=== PATIENT | female | born 1960 | race Caucasian/White ===

== ENCOUNTER 2017-08-25 17:55 | Emergency (ER) | payer BC ==
[2017-08-25] MEDS ORDERED: Sodium Chloride 0.9% 1,000 ML IV ONE (18:28)
[2017-08-25] MEDS ORDERED: Ondansetron 4 MG Tab.DIS PO ONE (18:36)
[2017-08-25] MEDS ORDERED: Sodium Chloride 0.9% 10 ML Syringe FLUSH ONE (19:40)
[2017-08-25] MEDS ORDERED: Ondansetron 4 MG Tab.DIS PO PRN (19:42)
--- NOTE | 2017-08-27 09:07 | EDM.PDOC ---
ED HPI GENERAL MEDICAL PROBLEM - General Chief Complaint: Gastrointestinal Problem Stated Complaint: ABDOMINAL PAIN Time Seen by Provider: 08/25/17 18:09 Source of Information: Reports: Patient History Limitations: Reports: No Limitations - History of Present Illness INITIAL COMMENTS - FREE TEXT/NARRATIVE: PATIENT IS A 57-YEAR-OLD FEMALE WHO PRESENTS THE EMERGENCY DEPARTMENT THIS EVENING WITH A COMPLAINT OF VOMITING, DIARRHEA, AND ABDOMINAL DISCOMFORT WITH INTERMITTENT CRAMPING. PATIENT STATES THAT SHE HAD A HAMBURGER 2 DAYS AGO AT A [employer] AND SINCE THEN HAS HAD INTERMITTENT ABDOMINAL DISCOMFORT. SHE DOES HAVE CHRONIC DIARRHEA, BUT DID HAVE A COUPLE EPISODES OF VOMITING SINCE FRIDAY. PATIENT IS CURRENTLY ON CHEMOTHERAPY FOR COLON CANCER AND IS SCHEDULED FOR CHEMOTHERAPY AND CAT SCAN AT [facility] IN 2 DAYS. PATIENT STATES THAT ANOTHER INDIVIDUAL WITH HER ALSO ATE AT THE SAME ESTABLISHMENT AND HAS SIMILAR SYMPTOMS. PATIENT DENIES FEVER, CHEST PAIN, SHORTNESS OF BREATH, BLOOD IN VOMITUS OR DIARRHEA, DYSURIA, OR SYMPTOMS THAT ARE DIFFERENT THAN HER TYPICAL ABDOMINAL COMPLAINTS FOR HER CONDITION. Onset: Gradual Onset Date: 08/23/17 Duration: Day(s):, Intermittent Location: Reports: Abdomen Quality: Reports: Other (CRAMPING) Severity: Mild Improves with: Reports: None Worsens with: Reports: None Associated Symptoms: Reports: Nausea/Vomiting. Denies: Fever/Chills - Related Data Allergies Allergy/AdvReac Type Severity Reaction Status Date / Time No Known Allergies Allergy Verified 08/26/17 13:23 Home Meds: Home Meds Dexamethasone 4 mg PO ASDIRECTED PRN 06/25/17 [History] Iron,Carbonyl/Ascorbic Acid [Vitron-C Tablet] 1 tab PO BID 06/25/17 [History] Levothyroxine Sodium [Synthroid] 150 mcg PO DAILY 06/25/17 [History] Lidocaine/Prilocaine [EMLA Crm] 1 applic TOP ASDIRECTED PRN 06/25/17 [History] Prochlorperazine Maleate 10 mg PO QID PRN 06/25/17 [History] Ranitidine HCl [Zantac] 150 mg PO BID PRN 06/25/17 [History] Past Medical History HEENT History: Reports: Impaired Vision Gastrointestinal History: Reports: Chronic Diarrhea Other Gastrointestinal History: with chemo Genitourinary History: Reports: 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: Endocrine/Metabolic History: Reports: Hyperthyroidism Hematologic History: Reports: Anemia, Blood Transfusion(s), Iron Deficiency Other Hematologic History: microcytic anemia Immunologic History: Reports: Immunosuppression Oncologic (Cancer) History: Reports: Colon - Infectious Disease History Infectious Disease History: Reports: Mumps - Past Surgical History HEENT Surgical History: Reports: None GI Surgical History: Reports: Colonoscopy Female Surgical History: Reports: Section, Tubal Ligation Endocrine Surgical History: Reports: Thyroid Biopsy, Thyroidectomy Social & Family History - Caffeine Use Caffeine Use: Reports: None ED ROS GENERAL - Review of Systems Review Of Systems: ROS reveals no pertinent complaints other than HPI. Constitutional: Reports: No Symptoms HEENT: Reports: No Symptoms Respiratory: Reports: No Symptoms Cardiovascular: Reports: No Symptoms Endocrine: Reports: No Symptoms GI/Abdominal: Reports: Abdominal Pain, Diarrhea, Nausea, Vomiting : Reports: No Symptoms Musculoskeletal: Reports: No Symptoms Skin: Reports: No Symptoms Neurological: Reports: No Symptoms Psychiatric: Reports: No Symptoms Hematologic/Lymphatic: Reports: No Symptoms Immunologic: Reports: No Symptoms ED EXAM, GI/ABD - Physical Exam Exam: See Below Exam Limited By: No Limitations General Appearance: Alert, WD/WN, No Apparent Distress Nose: Normal Inspection, No Blood Throat/Mouth: Normal Inspection, Normal Oropharynx, No Airway Compromise Head: Atraumatic, Normocephalic Neck: Normal Inspection, Supple Respiratory/Chest: No Respiratory Distress, Lungs Clear, Normal Breath Sounds, No Accessory Muscle Use, Chest Non-Tender Cardiovascular: Regular Rate, Rhythm, No Rub GI/Abdominal Exam: Soft, No Distention, No Abnormal Bruit, No Mass, Tender ( MILDLY TENDER DIFFUSELY), Abnormal Bowel Sounds (HYPERACTIVE) Back Exam: Normal Inspection. No: CVA Tenderness (L), CVA Tenderness (R) Extremities: Normal Inspection, No Pedal Edema Neurological: Alert, Oriented, Normal Cognition Psychiatric: Normal Affect, Normal Mood Skin Exam: Warm, Dry, Intact, Normal Color, No Rash Course - Orders/Labs/Meds Orders: Medication Orders Ondansetron HCl (Zofran Odt) 4 mg PO Q6H PRN PRN Reason: Nausea/Vomiting Last Admin: 08/25/17 19:42 Dose: 16 mg Meds: Medications Generic Name Dose Route Start Last Admin Trade Name Freq PRN Reason Stop Dose Admin Ondansetron HCl 4 mg 08/25/17 19:42 08/25/17 19:42 Zofran Odt PO 16 mg Q6H PRN Administration Nausea/Vomiting Discontinued Medications Generic Name Dose Route Start Last Admin Trade Name Kate PRN Reason Stop Dose Admin Sodium Chloride 1,000 mls @ 999 mls/hr 08/25/17 18:28 08/25/17 18:30 Normal Saline IV 08/25/17 19:28 999 mls/hr .BOLUS ONE Administration Ondansetron HCl 4 mg 08/25/17 18:36 08/25/17 18:45 Zofran Odt PO 08/25/17 18:37 4 mg ONETIME ONE Administration Sodium Chloride 20 ml 08/25/17 19:40 08/26/17 16:39 Saline Flush FLUSH 08/25/17 19:41 20 ml ONETIME ONE Administration - Re-Assessments/Exams Free Text/Narrative Re-Assessment/Exam: 08/27/17 09:26 PATIENT AFEBRILE, NONTOXIC APPEARING, VITAL SIGNS STABLE, LAB VALUES WITHIN NORMAL LIMITS. PATIENT GIVEN 4 MG ZOFRAN AND 1 L NORMAL SALINE IV. NAUSEA AND DISCOMFORT RESOLVED. PATIENT WILL FOLLOW-UP SCHEDULED IN [place] ON FRIDAY AND RETURN TO EMERGENCY DEPARTMENT SOONER IF SYMPTOMS CONTINUE OR WORSEN. Departure - Departure Time of Disposition: 19:45 Disposition: Home, Self-Care 01 Condition: Good Clinical Impression: Diarrhea, Abdominal pain Nausea & vomiting Qualifiers: Vomiting type: unspecified Vomiting Intractability: non-intractable Qualified Code(s): R11.2 - Nausea with vomiting, unspecified - Discharge Information Instructions: Dehydration, Adult, [id number], Nausea and Vomiting, Adult, [id number], Diarrhea, Adult, [id number], Abdominal Pain, Adult, [id number] Referrals: PCP,Unobtain [Primary Care Provider] - Forms: ED Department Discharge Additional Instructions: FOLLOW-UP SCHEDULED ON FRIDAY IN [place] FOR CHEMOTHERAPY. RETURN TO EMERGENCY DEPARTMENT SOONER IF SYMPTOMS CONTINUE OR WORSEN. - Assessment/Plan Assessment:: ABDOMINAL PAIN, DIARRHEA Plan: FOLLOW-UP SCHEDULED IN [place] ON FRIDAY. RETURN TO EMERGENCY SOONER IF SYMPTOMS CONTINUE OR WORSEN.
[2017-08-27 11:23] LABS: CHLORIDE,CL 107 mmol/L (98-115); SODIUM,NA 139 mmol/L (136-145)
== END 2017-08-25 19:45 | disposition home or self-care (01) ==
LOC: KA.ED 17:55
DX: R11.2 Nausea with vomiting, unspecified (principal); R19.7 Diarrhea, unspecified; R10.9 Unspecified abdominal pain; E05.90 Thyrotoxicosis, unspecified without thyrotoxic crisis or storm; Z79.899 Other long term (current) drug therapy
CPT/HCPCS: 36415; 80053; 81001; 82270; 85025; 87045; 87046; 87324; 89055; 96360; 99284; A9270-GY; J7030

== ENCOUNTER 2017-10-12 21:46 | Emergency (ER) | payer BC ==
[2017-10-12] MEDS ORDERED: Ondansetron 4 MG/2 ML SDV IVPUSH ONE ×2 (22:38→22:58)
[2017-10-12] MEDS ORDERED: Sodium Chloride 0.9% 1,000 ML IV ONE (22:38)
--- NOTE | 2017-10-12 22:43 | EDM.PDOC ---
ED HPI GENERAL MEDICAL PROBLEM - General Chief Complaint: Gastrointestinal Problem Stated Complaint: nausea vomitting Time Seen by Provider: 10/12/17 22:15 Source of Information: Reports: Patient, Family () History Limitations: Reports: No Limitations - History of Present Illness INITIAL COMMENTS - FREE TEXT/NARRATIVE: Patient presents with vomiting and diarrhea. The vomiting has been pretty heavy since this morning when it started; the diarrhea has been 5x/day for the last 3 days. She had chemo 4 days ago and gets it [id number]. 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 She denies any known fever, cough, dysuria. She started a new kind of chemo in the last couple weeks that has been causing more N/V than her previous one. Except for the diarrhea she has felt quite good most of the weekend and went to activities with her granddaughter, etc. Today, however has been tough with all the vomiting. - Related Data Allergies Allergy/AdvReac Type Severity Reaction Status Date / Time No Known Allergies Allergy Verified 10/12/17 23:17 Home Meds: Home Meds Dexamethasone 4 mg PO ASDIRECTED PRN 06/25/17 [History] Iron,Carbonyl/Ascorbic Acid [Vitron-C Tablet] 1 tab PO BID 06/25/17 [History] Levothyroxine Sodium [Synthroid] 150 mcg PO DAILY 06/25/17 [History] Lidocaine/Prilocaine [EMLA Crm] 1 applic TOP ASDIRECTED PRN 06/25/17 [History] Prochlorperazine Maleate 10 mg PO QID PRN 06/25/17 [History] Ranitidine HCl [Zantac] 150 mg PO BID PRN 06/25/17 [History] Past Medical History HEENT History: Reports: Impaired Vision Gastrointestinal History: Reports: Chronic Diarrhea Other Gastrointestinal History: with chemo Genitourinary History: Reports: None 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: Endocrine/Metabolic History: Reports: Hyperthyroidism Hematologic History: Reports: Anemia, Blood Transfusion(s), Iron Deficiency Other Hematologic History: microcytic anemia Immunologic History: Reports: Immunosuppression Oncologic (Cancer) History: Reports: Colon - Infectious Disease History Infectious Disease History: Reports: Mumps - Past Surgical History HEENT Surgical History: Reports: None GI Surgical History: Reports: Colonoscopy Female Surgical History: Reports: Section, Tubal Ligation Endocrine Surgical History: Reports: Thyroid Biopsy, Thyroidectomy Social & Family History - Caffeine Use Caffeine Use: Reports: None ED ROS GENERAL - Review of Systems Review Of Systems: See Below Constitutional: Reports: Malaise, Weakness. Denies: Fever, Chills HEENT: Reports: No Symptoms. Denies: Throat Pain, Throat Swelling, Vision Change Respiratory: Reports: No Symptoms. Denies: Shortness of Breath, Cough Cardiovascular: Reports: No Symptoms. Denies: Chest Pain, Lightheadedness, Syncope Endocrine: Reports: No Symptoms GI/Abdominal: Reports: Diarrhea, Nausea, Vomiting. Denies: Abdominal Pain, Bloody Stool : Reports: No Symptoms. Denies: Dysuria, Flank Pain Musculoskeletal: Reports: No Symptoms Skin: Reports: No Symptoms Neurological: Reports: No Symptoms. Denies: Confusion, Seizure, Syncope Psychiatric: Reports: No Symptoms. Denies: Agitation, Anxiety, Confusion Hematologic/Lymphatic: Denies: Anemia ED EXAM, GI/ABD - Physical Exam Exam: See Below Exam Limited By: No Limitations General Appearance: Alert, WD/WN, No Apparent Distress Eyes: Bilateral: Normal Appearance, EOMI Ears: Normal External Exam, Hearing Grossly Normal Nose: Normal Inspection, No Blood Throat/Mouth: Normal Inspection, Normal Lips, Normal Voice, No Airway Compromise Head: Atraumatic, Normocephalic Neck: Normal Inspection, Full Range of Motion Respiratory/Chest: No Respiratory Distress, Lungs Clear, Normal Breath Sounds, No Accessory Muscle Use Cardiovascular: No Murmur, Tachycardia (mild). No: Irregularly Irregular GI/Abdominal Exam: Soft, Non-Tender, No Organomegaly, No Distention Back Exam: Normal Inspection. No: CVA Tenderness (L), CVA Tenderness (R) Neurological: Alert, Oriented, Normal Cognition, No Motor/Sensory Deficits Psychiatric: Normal Affect, Normal Mood Skin Exam: Warm, Dry, Intact, No Rash, Pallor Course - Vital Signs Last Recorded V/S: Last Vital Signs Temp 99.3 F 10/12/17 23:27 Pulse 92 10/12/17 23:45 Resp 26 H 10/12/17 23:45 BP 102/49 L 10/12/17 23:45 Pulse Ox 97 10/12/17 23:45 - Orders/Labs/Meds Orders: Active Orders 24 hr Category Date Time Status Chest 2V [CR] Stat Exams 10/13/17 00:00 Ordered CULTURE BLOOD [BC] Stat Lab 10/13/17 00:02 Ordered CULTURE BLOOD [BC] Stat Lab 10/13/17 00:02 Ordered CULTURE URINE [RM] Stat Lab 10/13/17 01:21 Ordered UA W/MICROSCOPIC [URIN] Stat Lab 10/13/17 00:00 Ordered Blood Culture x2 Reflex Set [OM.PC] Stat Oth 10/13/17 00:00 Ordered Labs: Laboratory Tests 10/12/17 10/12/17 10/12/17 Range/Units 22:55 22:55 22:55 WBC 1.0 L* (5.0-10.0) 10^3/uL RBC 5.28 (3.80-5.50) 10^6/uL Hgb 14.3 D (12.0-16.0) g/dL Hct 43.8 (37.0-47.0) % MCV 82.9 D (82.0-92.0) fL MCH 27.0 (27.0-31.0) pg MCHC 32.6 (32.0-36.0) g/dL RDW 18.5 H (11.5-14.5) % Plt Count 489 H D (150-300) 10^3/uL MPV 6.6 L (7.4-10.4) fL Neut % (Auto) 18.5 L (50.0-70.0) % Lymph % (Auto) 71.2 H (20.0-40.0) % Morgan % (Auto) 6.6 (2.0-8.0) % Eos % (Auto) 0.3 L (1.0-3.0) % Baso % (Auto) 3.4 H (0.0-1.0) % Neut # (Auto) 0.2 L (2.5-7.0) 10^3/uL Lymph # (Auto) 0.7 L (1.0-4.0) 10^3/uL Morgan # (Auto) 0.1 (0.1-0.8) 10^3/uL Eos # (Auto) 0.0 L (0.1-0.3) 10^3/uL Baso # (Auto) 0.0 (0.0-0.1) 10^3/uL Sodium 132 L (136-145) mmol/L Potassium 4.2 (3.3-5.3) mmol/L Chloride 98 (98-115) mmol/L Carbon Dioxide 18.5 L (21.0-32.0) mmol/L BUN 22 (6-25) mg/dL Creatinine 0.99 (0.51-1.17) mg/dL Est Cr Clr Drug Dosing 59.40 mL/min Estimated GFR (MDRD) 58 mL/min Glucose 197 H (70-110) mg/dL Lactic Acid 4.1 H (0.4-2.0) mmol/L Calcium 9.2 (8.7-10.3) mg/dL Specimen Type Urine Color (YELLOW) Urine Appearance (CLEAR) Urine pH (5.0-9.0) Ur Specific [place] (1.005-1.030) Urine Protein (NEGATIVE) mg/dL Urine Glucose (UA) (NEGATIVE) mg/dL Urine Ketones (NEGATIVE) mg/dL Urine Occult Blood (NEGATIVE) Urine Nitrite (NEGATIVE) Urine Bilirubin (NEGATIVE) Urine Urobilinogen (0.2-1.0) E.U./dL Ur Leukocyte Esterase (NEGATIVE) Urine RBC /HPF Urine WBC /HPF Ur Epithelial Cells /LPF Urine Bacteria (NONE TO FEW) /HPF Hyaline Casts (NEGATIVE) /LPF Granular Casts (NEGATIVE) /LPF Urine Mucus (NEGATIVE) /LPF 10/13/17 10/13/17 Range/Units 00:55 01:00 WBC (5.0-10.0) 10^3/uL RBC (3.80-5.50) 10^6/uL Hgb (12.0-16.0) g/dL Hct (37.0-47.0) % MCV (82.0-92.0) fL MCH (27.0-31.0) pg MCHC (32.0-36.0) g/dL RDW (11.5-14.5) % Plt Count (150-300) 10^3/uL MPV (7.4-10.4) fL Neut % (Auto) (50.0-70.0) % Lymph % (Auto) (20.0-40.0) % Morgan % (Auto) (2.0-8.0) % Eos % (Auto) (1.0-3.0) % Baso % (Auto) (0.0-1.0) % Neut # (Auto) (2.5-7.0) 10^3/uL Lymph # (Auto) (1.0-4.0) 10^3/uL Morgan # (Auto) (0.1-0.8) 10^3/uL Eos # (Auto) (0.1-0.3) 10^3/uL Baso # (Auto) (0.0-0.1) 10^3/uL Sodium (136-145) mmol/L Potassium (3.3-5.3) mmol/L Chloride (98-115) mmol/L Carbon Dioxide (21.0-32.0) mmol/L BUN (6-25) mg/dL Creatinine (0.51-1.17) mg/dL Est Cr Clr Drug Dosing mL/min Estimated GFR (MDRD) mL/min Glucose (70-110) mg/dL Lactic Acid 3.6 H (0.4-2.0) mmol/L Calcium (8.7-10.3) mg/dL Specimen Type Urincc Urine Color Yellow (YELLOW) Urine Appearance Slightly cloudy H (CLEAR) Urine pH 5.0 (5.0-9.0) Ur Specific [place] 1.025 (1.005-1.030) Urine Protein 30 H (NEGATIVE) mg/dL Urine Glucose (UA) Negative (NEGATIVE) mg/dL Urine Ketones Negative (NEGATIVE) mg/dL Urine Occult Blood Negative (NEGATIVE) Urine Nitrite Negative (NEGATIVE) Urine Bilirubin Small H (NEGATIVE) Urine Urobilinogen 0.2 (0.2-1.0) E.U./dL Ur Leukocyte Esterase Negative (NEGATIVE) Urine RBC 0-5 /HPF Urine WBC 5-10 H /HPF Ur Epithelial Cells Few /LPF Urine Bacteria Moderate H (NONE TO FEW) /HPF Hyaline Casts Many H (NEGATIVE) /LPF Granular Casts Moderate H (NEGATIVE) /LPF Urine Mucus Moderate H (NEGATIVE) /LPF Meds: Medications Discontinued Medications Generic Name Dose Route Start Last Admin Trade Name Freq PRN Reason Stop Dose Admin Sodium Chloride 1,000 mls @ 999 mls/hr 10/12/17 22:38 10/12/17 22:54 Normal Saline IV 10/12/17 23:38 999 mls/hr .BOLUS ONE Administration Piperacillin Sod/Tazobactam 50 mls @ 100 mls/hr 10/13/17 00:00 10/13/17 01:10 Sod 3.375 gm/ Sodium Chloride IV 10/13/17 00:29 Not Given ONETIME ONE Sodium Chloride 1,000 mls @ 999 mls/hr 10/13/17 00:00 10/13/17 00:05 Normal Saline IV 10/13/17 01:00 999 mls/hr .BOLUS ONE Administration Vancomycin HCl 1 gm/ Sodium 250 mls @ 167 mls/hr 10/13/17 00:00 Chloride IV 10/13/17 01:29 ONETIME ONE Piperacillin/Tazobactam/ 50 mls @ 100 mls/hr 10/13/17 01:07 10/13/17 01:09 Dextrose 3.375 gm/ Premix IV 10/13/17 01:36 100 mls/hr ONETIME ONE Administration Sodium Chloride Confirm 10/13/17 01:34 Normal Saline Administered 10/13/17 01:35 Dose 1,000 mls @ as directed .ROUTE .STK-MED ONE Ondansetron HCl 4 mg 10/12/17 22:38 10/12/17 22:54 Zofran IVPUSH 10/12/17 22:39 4 mg ONETIME ONE Administration Ondansetron HCl 4 mg 10/12/17 22:58 10/12/17 23:14 Zofran IVPUSH 10/12/17 22:59 4 mg ONETIME ONE Administration Ondansetron HCl Confirm 10/12/17 22:59 10/12/17 23:14 Zofran Administered 10/12/17 23:00 Not Given Dose 4 mg .ROUTE .STK-MED ONE - Re-Assessments/Exams Free Text/Narrative Re-Assessment/Exam: 10/13/17 00:03 WBC 1.0, ANC 0.2, lactic acid 4.1, tachypnea, hypotension tachycardia. The vitals improved after fluids and patient is feeling a little better. I discussed this with Dr. Lewis who advised me to discuss with hospitalist in [place] to determine transfer or admit here. I discussed case with Dr. Armas ( film color tester) because their protocol requires that for anyone with Lactate above 4.0. He requested Zosyn, Vanco, UA, CXR, second liter of fluids and repeat Lactate to see how she responds before knowing if she would need ICU, since she has responded positively to the first liter of fluids. Discussed this with patient and she is okay with this plan. 10/13/17 01:04 Second liter of fluids and Zosyn are running. Patient would like to be in [place] where her oncologist is. I called and discussed case with Dr. Roper ( hospitalist) who is willing to accept except he wants a repeat Lactic acid first , in case she would need to go to ICU instead. He is okay with me initiating transfer while we wait for the lactate since pt will be going to [place] either way and they will decide which doctor sees her after the lactate result. 10/13/17 01:41 Second lactic acid is 3.6; this is called to [place] and patient is leaving now in stable condition. Zosyn is in and Vanco will be started en route. Departure - Departure Time of Disposition: 01:02 Disposition: DC/Tfer to Acute Hospital 02 Condition: Good Clinical Impression: Lactic acid acidosis, Tachycardia, Tachypnea Neutropenia Qualifiers: Neutropenia type: unspecified Qualified Code(s): D70.9 - Neutropenia, unspecified Hypotension Qualifiers: Hypotension type: unspecified hypotension type Qualified Code(s): I95.9 - Hypotension, unspecified UTI (urinary tract infection) Qualifiers: Urinary tract infection type: site unspecified Hematuria presence: without hematuria Qualified Code(s): N39.0 - Urinary tract infection, site not specified - Discharge Information Referrals: Priti Lewis MD [Primary Care Provider] - Forms: ED Department Discharge - My Orders Last 24 Hours: My Active Orders 10/13/17 00:00 Chest 2V [CR] Stat UA W/MICROSCOPIC [URIN] Stat Blood Culture x2 Reflex Set [OM.PC] Stat 10/13/17 00:02 CULTURE BLOOD [BC] Stat CULTURE BLOOD [BC] Stat 10/13/17 01:21 CULTURE URINE [RM] Stat - Assessment/Plan Last 24 Hours: My Active Orders 10/13/17 00:00 Chest 2V [CR] Stat UA W/MICROSCOPIC [URIN] Stat Blood Culture x2 Reflex Set [OM.PC] Stat 10/13/17 00:02 CULTURE BLOOD [BC] Stat CULTURE BLOOD [BC] Stat 10/13/17 01:21 CULTURE URINE [RM] Stat
[2017-10-12] MEDS ORDERED: Ondansetron 4 MG/2 ML SDV ONE (22:59)
[2017-10-13] MEDS ORDERED: Sodium Chloride 0.9% 1,000 ML IV ONE
[2017-10-13] MEDS ORDERED: Piperacillin/Tazobactam 3.375 GM in Sodium Chloride 0.9% 50 ML IV ONE ×2
[2017-10-13] MEDS ORDERED: Piperacillin/Tazobactam/Dext 3.375 GM in Premix Bag 1 BAG IV ONE (01:07)
[2017-10-13] MEDS ORDERED: Sodium Chloride 0.9% 1,000 ML ONE (01:34)
== END 2017-10-13 01:35 ==
LOC: SUPCPDRO 21:46 → KA.ED 21:46
DX: R00.0 Tachycardia, unspecified (principal); R06.82 Tachypnea, not elsewhere classified; E87.2 Acidosis; D70.9 Neutropenia, unspecified; I95.9 Hypotension, unspecified; N39.0 Urinary tract infection, site not specified; E05.90 Thyrotoxicosis, unspecified without thyrotoxic crisis or storm; Z79.899 Other long term (current) drug therapy
CPT/HCPCS: 36415; 80048; 81001; 83605; 85025; 87040; 87086; 96361; 96365; 96375; 99285; J2405; J2543; J7030

== ENCOUNTER 2017-11-14 09:24 | Inpatient (IN) | payer BC ==
[2017-11-14] MEDS ORDERED: Ondansetron 4 MG Tab.DIS PO PRN ×2 (18:27→19:07)
[2017-11-14] MEDS: Acetaminophen 325 MG Tab PO PRN (19:04)
[2017-11-14] MEDS ORDERED: Melatonin 3 MG Tab PO PRN (19:09)
--- NOTE | 2017-11-14 19:11 | PCM.HP ---
H&P History of Present Illness - General Date of Service: 11/14/17 Admit Problem/Dx: Admission Diagnosis/Problem Admission Diagnosis/Problem Debility - History of Present Illness Initial Comments - Free Text/Narative: Mrs. Walls reports generalized fatigue and overall lack of energy. No new concerns since 3 week stay at [facility]. Received 2units PRBCs this morning prior to transfer. Hopes to gain strength during her stay. Had been working with PT and OT during acute stay. Abdominal and back pain are stable and improved with Tylenol. Tolerating other medications as long as pills are cut smaller. Sat at bedside discussion overall plan of care for approximately 40 minutes. - Related Data Allergies/Adverse Reactions: Allergies Allergy/AdvReac Type Severity Reaction Status Date / Time No Known Allergies Allergy Verified 11/14/17 17:08 Home Medications: Home Meds Dexamethasone 4 mg PO ASDIRECTED PRN 06/25/17 [History] Iron,Carbonyl/Ascorbic Acid [Vitron-C Tablet] 1 tab PO BID 06/25/17 [History] Levothyroxine Sodium [Synthroid] 150 mcg PO DAILY 06/25/17 [History] Lidocaine/Prilocaine [EMLA Crm] 1 applic TOP ASDIRECTED PRN 06/25/17 [History] Prochlorperazine Maleate 10 mg PO QID PRN 06/25/17 [History] Ranitidine HCl [Zantac] 150 mg PO BID PRN 06/25/17 [History] Past Medical History HEENT History: Reports: Impaired Vision Gastrointestinal History: Reports: Chronic Diarrhea Other Gastrointestinal History: with chemo Genitourinary History: Reports: None 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: Endocrine/Metabolic History: Reports: Hyperthyroidism Hematologic History: Reports: Anemia, Blood Transfusion(s), Iron Deficiency Other Hematologic History: microcytic anemia Immunologic History: Reports: Immunosuppression Oncologic (Cancer) History: Reports: Colon - Infectious Disease History Infectious Disease History: Reports: Mumps - Past Surgical History HEENT Surgical History: Reports: None GI Surgical History: Reports: Colonoscopy Female Surgical History: Reports: Section, Tubal Ligation Endocrine Surgical History: Reports: Thyroid Biopsy, Thyroidectomy Social & Family History - Family History Cardiac: Reports: Congenital Septal Defect, High Cholesterol, Hypertension Oncologic: Reports: Brain, Breast, Ovarian, Pancreatic, Prostate - Caffeine Use Caffeine Use: Reports: None H&P Review of Systems - Review of Systems: Review Of Systems: ROS reveals no pertinent complaints other than HPI. General: Reports: Malaise, Weakness, Fatigue, Weight Loss. Denies: Fever, Chills Pulmonary: Reports: Cough. Denies: Shortness of Breath, Wheezing Cardiovascular: Reports: Dyspnea on Exertion. Denies: Chest Pain Gastrointestinal: Reports: Abdominal Pain. Denies: No Symptoms Genitourinary: Reports: No Symptoms Musculoskeletal: Reports: Back Pain, Joint Pain. Denies: Joint Swelling Skin: Reports: Pallor, Dryness Psychiatric: Reports: Depression, Hallucinations (Visual) (during recent hospitalization while in ICU) Neurological: Reports: Confusion, Tremors, Weakness, Gait Disturbance. Denies: Headache, Numbness, Paresthesia Hematologic/Lymphatic: Reports: Anemia Immunologic: Reports: Environmental Allergy. Denies: Anaphylaxis, Food Allergy Exam - Exam Exam: See Below - Vital Signs Vital Signs: Last Vital Signs Temp 37.0 C 11/14/17 16:55 Pulse 110 H 11/14/17 16:55 Resp 24 H 11/14/17 16:55 BP 131/82 11/14/17 16:55 Pulse Ox 93 L 11/14/17 16:55 Weight: 72.892 kg - Exam General: Alert, Oriented, Other (cachectic and tired appearing) HEENT: Conjunctiva Clear, Hearing Intact, Mucosa Moist & [place] Neck: Supple Lungs: Normal Respiratory Effort Cardiovascular: Regular Rate, Regular Rhythm GI/Abdominal Exam: Soft, Other (Drain sites with dressings in place) Extremities: Normal Range of Motion, Non-Tender, No Pedal Edema Skin: Warm, Dry Neurological: No: Focal Deficit Psychiatric: Alert, Depressed Problem List Initiated/Reviewed/Updated: Yes Orders Last 24hrs: Active Orders 24 hr Category Date Time Status Patient Status [ADT] Routine ADT 11/14/17 19:08 Ordered May Shower [RC] ASDIRECTED Care 11/14/17 19:08 Ordered Up With Assistance [RC] ASDIRECTED Care 11/14/17 19:08 Ordered Up to Chair [RC] TID Care 11/14/17 19:08 Ordered Vital Signs [RC] DAILY Care 11/14/17 19:08 Ordered Regular Diet [DIET] Diet 11/14/17 Breakfast Ordered MISCELLANEOUS CULT [MREF] Routine Lab 11/14/17 17:45 Received Acetaminophen [Tylenol] Med 11/14/17 18:15 Active 650 mg PO Q4H PRN Ascorbic Acid [Vitamin C] Med 11/15/17 09:00 Ordered 500 mg PO DAILY Ferrous Sulfate [Slow Release Iron] Med 11/15/17 09:00 Ordered 160 mg PO DAILY Levothyroxine Med 11/15/17 07:30 Active 150 mcg PO ACBREAKFAST Melatonin Med 11/14/17 19:09 Ordered 3 mg PO BEDTIME PRN Mirtazapine [Remeron] Med 11/14/17 21:00 Active 30 mg PO BEDTIME Ondansetron [Zofran ODT] Med 11/14/17 19:07 Ordered 8 mg PO Q8H PRN levoFLOXacin [Levaquin] Med 11/15/17 09:00 Ordered 750 mg PO DAILY Resuscitation Status Routine Resus Stat 11/14/17 19:08 Ordered Medication Orders Acetaminophen (Tylenol) 650 mg PO Q4H PRN PRN Reason: Pain (mild 1-3) Last Admin: 11/14/17 19:04 Dose: 650 mg Ascorbic Acid (Vitamin C) 500 mg PO DAILY [place] Ferrous Sulfate (Slow Release Iron) 160 mg PO DAILY [place] Levofloxacin (Levaquin) 750 mg PO DAILY [place] Levothyroxine Sodium (Levothyroxine) 150 mcg PO ACBREAKFAST [place] Mirtazapine (Remeron) 30 mg PO BEDTIME [place] Ondansetron HCl (Zofran Odt) 8 mg PO Q8H PRN PRN Reason: Nausea/Vomiting Assessment/Plan Comment:: HPI summary: Mrs. Walls is a 57yoF with a history notable for stage IV colon adenocarcinoma with recent hospitalization from 10/23/17 to 11/14/17 at [facility] for abdominal pain secondary to bowel obstruction who during the hospitalization developed peritonitis with septic shock and recurrent malignant ascites for which abdominal drain is now in place. She required several courses of antibiotics, TPN and PRBCs at times during her stay. She became significantly deconditioned and was discharged to for swing bed rehabilitation. Hospitalization problems: # Deconditioning: Secondary to metastatic cancer and recent illness. PT referral placed. 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 Ruffin, [facility]; next appt . Plan is to resume irinotecan and panitumumab at 20% dose reduction when stable. Referral has also been placed to go to [facility] for second opinion in the near future. Monitor peritoneal drain and prior peritoneal drain sites closely. # Hx peritonitis secondary to bowel perforation: Etiology E. coli and Strep anginosus. S/p 10 day course of cefepime and metronidazole. Now on prophylactic levofloxacin, which will be continued. 11/13/17 CT abdomen/pelvis with air in the ascites, which was felt to be secondary to the peritoneal drain and not bowel perforation. # Pain: Main sites include abdomen and back. Continue Tylenol prn. History suggestive of trigger point, for which may benefit from trigger point injections if persistent. # Anemia: Received 2 units PRBCs on 11/14/17. Recheck CBC tomorrow. Continue iron supplementation with vitamin C. # Protein calorie malnutrition: Received TPN for 2 weeks. Encourage healthy diet. # Depression and insomnia: Related to overall and recent medical difficulties. Mirtazepine recently started, which will be continued. Also ordered melatonin prn. 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 Continue levothyroxine at current dose. Hospitalization details: # FEN: No IVF. 11/14 electrolytes normal; recheck tomorrow. Regular diet. # PPX: Ambulation for DVT ppx. # Code status: FULL code. Patient states that she is having a goals of care discussion with her family this weekend and will notify me of any changes in this status. # Emergency contact: , [place]. # Disposition: Admit to swing bed status for physical rehabilitation.
[2017-11-14] MEDS ORDERED: Mirtazapine 15 MG Tab PO SCH (21:00)
[2017-11-15] MEDS ORDERED: Levothyroxine 100 MCG Tab PO SCH (07:30)
[2017-11-15] MEDS: Levofloxacin 500 MG Tab PO SCH (10:27)
[2017-11-15] MEDS: Ferrous Sulfate 160 MG TAB.ER PO SCH (10:29)
[2017-11-15] MEDS: Ascorbic Acid 500 MG Tab PO SCH (10:31)
[2017-11-15] MEDS: Levothyroxine 75 MCG Tab PO SCH (10:32)
[2017-11-15 11:30] LABS: ANION GAP 19.3 mmol/L (5-15); CHLORIDE,CL 107 mmol/L (98-115); SODIUM,NA 148 mmol/L (136-145)
[2017-11-15] MEDS: Mirtazapine 15 MG Tab PO SCH (21:19)
[2017-11-16] MEDS: Levofloxacin 500 MG Tab PO SCH (09:29)
[2017-11-16] MEDS ORDERED: LORazepam 0.5 MG Tab PO PRN (10:22)
[2017-11-16] MEDS ORDERED: Levofloxacin/Dextrose 5%-Water 250 MG in Premix Bag 1 BAG IV SCH (10:45)
[2017-11-16] MEDS ORDERED: Levofloxacin/Dextrose 5%-Water 500 MG in Premix Bag 1 BAG IV SCH (10:45)
[2017-11-16] MEDS: Iron Polysaccharides Complex 150 MG Cap PO SCH (12:11)
[2017-11-16] MEDS: Ascorbic Acid 500 MG Tab PO SCH (12:11)
[2017-11-16] MEDS: Levothyroxine 75 MCG Tab PO SCH (12:11)
[2017-11-16] MEDS: Ferrous Sulfate 160 MG TAB.ER PO SCH (15:30)
[2017-11-16] MEDS ORDERED: Acetaminophen 650 MG Supp RECTAL PRN (19:46)
[2017-11-16] MEDS ORDERED: Sodium Chloride 0.9% 1,000 ML IV SCH (20:45)
--- NOTE | 2017-11-16 20:54 | PCM.SN ---
- Free Text/Narrative Note: Pt has been restless with jerky movements and picking, unable to settle. Head shaking side to side. Was given ativan 0.5 mg q 4 hrs prn today. Last dose at 4 pm. After supper pt has become less lucid. She can open eyes to command but unable to speak. When questioned re: pain, she makes sound of no with head shaking. When palpating distended abdomen and asking if she has pain she does seem to indicate pain. Mouth is dry Abdomen distended. Drain put out 750 ml on days and 140 on pm shift. Urine out put 450 on days, none on PM shift. Temp has been 99.6-100 temporally, Heart rate 119-110, BP 117/55-102/70, REsp 24 , O2Sats 92%. Rectal temp checked and found to be 100.7. Change in mental status in pt with recent peritonitis/sepsis/colon cancer on chemo. Will check CBC, BMP, BLOOD CULTURES, LACTIC ACID Begin NS IV 125 ml/hr. stop ativan.
[2017-11-16] MEDS: Mirtazapine 15 MG Tab PO SCH (21:17)
[2017-11-16 22:11] LABS: CHLORIDE,CL 107 mmol/L (98-115); SODIUM,NA 144 mmol/L (136-145)
[2017-11-16] MEDS ORDERED: NS + KCl 20mEq/L 1,000 ML IV SCH (22:45)
[2017-11-17] MEDS: Sodium Chloride 0.9% 20 ML SDV FLUSH SCH ×4 (01:00→22:03)
[2017-11-17] MEDS: Levothyroxine 75 MCG Tab PO SCH ×2 (08:26→12:17)
[2017-11-17 12:39] LABS: ANION GAP 12.6 mmol/L (5-15); CHLORIDE,CL 110 mmol/L (98-115); SODIUM,NA 146 mmol/L (136-145)
[2017-11-17] MEDS: Acetaminophen 325 MG Tab PO PRN (13:22)
[2017-11-17] MEDS: Iron Polysaccharides Complex 150 MG Cap PO SCH (15:14)
[2017-11-17] MEDS: Levofloxacin/Dextrose 5%-Water 50 ML IV SCH (15:15)
[2017-11-17] MEDS: Ascorbic Acid 500 MG Tab PO SCH (15:15)
[2017-11-17] MEDS: Levofloxacin/Dextrose 5%-Water 100 ML IV SCH (16:30)
[2017-11-17] MEDS ORDERED: Potassium Bicarbonate/Potassium Chloride 25 MEQ Tab.Eff PO ONE ×2 (18:20→21:00)
[2017-11-17] MEDS ORDERED: Potassium Chloride 20 MEQ in Premix Bag 1 BAG IV ONE (22:25)
[2017-11-18 07:55] LABS: ANION GAP 13.3 mmol/L (5-15); CHLORIDE,CL 110 mmol/L (98-115); SODIUM,NA 146 mmol/L (136-145)
[2017-11-18] MEDS: Levothyroxine 75 MCG Tab PO SCH (08:23)
[2017-11-18] MEDS: Sodium Chloride 0.9% 20 ML SDV FLUSH SCH ×3 (08:25→22:09)
[2017-11-18] MEDS ORDERED: Potassium Bicarbonate/Potassium Chloride 25 MEQ Tab.Eff PO SCH (09:00)
--- NOTE | 2017-11-18 10:34 | PCM.PN ---
- General Info Date of Service: 11/17/17 Subjective Update: Immediately upon my arrival I was asked to see this patient due to significant change in mentation status as nurses could not arouse patient. Unable to perform review of systems due to patient's state of obtundedness - Patient Data Vitals - Most Recent: Last Vital Signs Temp 99.0 F 11/18/17 07:26 Pulse 92 11/18/17 07:26 Resp 16 11/18/17 07:26 BP 97/68 11/18/17 07:26 Pulse Ox 95 11/18/17 09:00 Weight - Most Recent: 160 lb 11.2 oz I&O - Last 24 Hours: Intake & Output 11/17/17 11/18/17 11/18/17 22:59 06:59 14:59 Intake Total 280 225 Output Total 300 Balance 280 -75 Lab Results Last 24 Hours: Laboratory Results - last 24 hr 11/17/17 11/17/17 11/18/17 Range/Units 11:08 11:55 07:25 PT 11.2 (8.9-11.4) SEC INR 1.1 (0.9-1.1) Sodium 146 H 146 H (136-145) mmol/L Potassium 3.1 L 3.7 (3.3-5.3) mmol/L Chloride 110 110 (98-115) mmol/L Carbon Dioxide 26.5 26.4 (21.0-32.0) mmol/L Anion Gap 12.6 13.3 (5-15) mmol/L BUN 12 10 (6-25) mg/dL Creatinine 0.61 0.61 (0.51-1.17) mg/dL Est Cr Clr Drug Dosing 96.40 96.40 mL/min Estimated GFR (MDRD) > 60 > 60 mL/min Glucose 77 113 mg/dL Calcium 6.9 L 6.8 L (8.7-10.3) mg/dL [place] Results Last 24 Hours: Microbiology 11/16/17 21:45 Aerobic Blood Culture - Preliminary Blood - Venous - Lab Draw NO GROWTH AFTER 1 DAY Anaerobic Blood Culture - Preliminary NO GROWTH AFTER 1 DAY 11/16/17 21:15 Aerobic Blood Culture - Preliminary Blood - Venous NO GROWTH AFTER 1 DAY Anaerobic Blood Culture - Preliminary NO GROWTH AFTER 1 DAY Med Orders - Current: Current Medications Acetaminophen (Tylenol) 650 mg PO Q4H PRN PRN Reason: Pain (mild 1-3) Last Admin: 11/17/17 13:22 Dose: 650 mg Acetaminophen (Tylenol) 650 mg RECTAL Q4H PRN PRN Reason: Fever Last Admin: 11/16/17 20:23 Dose: 650 mg Ascorbic Acid (Vitamin C) 500 mg PO DAILY [facility] Last Admin: 11/17/17 15:15 Dose: Not Given Levofloxacin/Dextrose (Levaquin In D5w 250 Mg/50 Ml) 50 mls @ 50 mls/hr IV DAILY@1330 [facility] Last Admin: 11/17/17 15:15 Dose: 50 mls/hr Levofloxacin/Dextrose (Levaquin In D5w 500 Mg/100 Ml) 100 mls @ 100 mls/hr IV DAILY@1430 [facility] Last Admin: 11/17/17 16:30 Dose: 100 mls/hr Levothyroxine Sodium (Levothyroxine) 150 mcg PO ACBREAKFAST [facility] Last Admin: 11/18/17 08:23 Dose: 150 mcg Mirtazapine (Remeron) 15 mg PO BEDTIME [facility] Last Admin: 11/16/17 21:17 Dose: Not Given Ondansetron HCl (Zofran Odt) 8 mg PO Q8H PRN PRN Reason: Nausea/Vomiting Ondansetron HCl (Zofran) 8 mg IVPUSH Q6H PRN PRN Reason: Nausea/Vomiting Polysaccharide Iron Complex (Ferrex 150) 150 mg PO DAILY [facility] Last Admin: 11/17/17 15:14 Dose: Not Given Ramelteon (Rozerem) 8 mg PO BEDTIME [facility] Last Admin: 11/17/17 22:41 Dose: Not Given Sodium Chloride (Normal Saline) 20 ml FLUSH TID [facility] Last Admin: 11/18/17 08:25 Dose: 20 ml Discontinued Medications Ferrous Sulfate (Slow Release Iron) 160 mg PO DAILY [facility] Last Admin: 11/16/17 15:30 Dose: Not Given Levofloxacin/Dextrose 250 mg/ (Premix) 50 mls @ 50 mls/hr IV ONETIME [facility] Last Admin: 11/16/17 12:24 Dose: 50 mls/hr Levofloxacin/Dextrose 500 mg/ (Premix) 100 mls @ 100 mls/hr IV ONETIME [facility] Last Admin: 11/16/17 15:29 Dose: 100 mls/hr Sodium Chloride (Normal Saline) 1,000 mls @ 125 mls/hr IV ASDIRECTED [facility] Last Admin: 11/16/17 21:29 Dose: 125 mls/hr Potassium Chloride/Sodium Chloride (Normal Saline With 20 Meq Kcl) 1,000 mls @ 125 mls/hr IV ASDIRECTED [facility] Last Admin: 11/16/17 23:06 Dose: 125 mls/hr Sodium Chloride (Normal Saline) Confirm Administered Dose 150 mls @ as directed .ROUTE .STK-MED ONE Stop: 11/17/17 14:46 Last Admin: 11/17/17 15:15 Dose: 50 mls/hr Potassium Chloride 20 meq/ (Premix) 100 mls @ 50 mls/hr IV ONETIME ONE Stop: 11/18/17 00:24 Last Admin: 11/17/17 22:39 Dose: 50 mls/hr Levofloxacin (Levaquin) 750 mg PO DAILY [facility] Last Admin: 11/15/17 10:27 Dose: 500 mg Levothyroxine Sodium (Synthroid) 100 mcg PO ACBREAKFAST [facility] Lorazepam (Ativan) 0.5 mg PO Q6H PRN PRN Reason: Agitation Stop: 11/17/17 10:22 Last Admin: 11/16/17 16:09 Dose: 0.5 mg Melatonin (Melatonin) 3 mg PO BEDTIME PRN PRN Reason: Insomnia Mirtazapine (Remeron) 30 mg PO BEDTIME [facility] Last Admin: 11/14/17 21:26 Dose: 30 mg Ondansetron HCl (Zofran Odt) 4 mg PO Q8H PRN PRN Reason: Nausea/Vomiting Potassium Bicarb/Potassium Chloride (Potassium Chloride, Effervescent) 25 meq PO ONETIME ONE Stop: 11/17/17 18:21 Last Admin: 11/17/17 18:30 Dose: 25 meq Potassium Bicarb/Potassium Chloride (Potassium Chloride, Effervescent) 25 meq PO ONETIME ONE Stop: 11/17/17 21:01 Last Admin: 11/17/17 23:16 Dose: Not Given Potassium Bicarb/Potassium Chloride (Potassium Chloride, Effervescent) 25 meq PO DAILY [facility] - Exam Quality Assessment: No: Supplemental Oxygen General: Other (Opened eyes to verbal command) Neck: Supple Lungs: Clear to Auscultation, Normal Respiratory Effort Cardiovascular: Regular Rate, Regular Rhythm GI/Abdominal Exam: Distended, Rigid. No: No Distention Extremities: No Pedal Edema, Pallor. No: Joint Swelling, Increased Warmth, Mottled Peripheral Pulses: 2+: Radial (L), Radial (R) Skin: Warm, Dry, Intact Neurological: Normal Tone, Sensation Intact. No: Normal Speech Psy/Mental Status: Withdrawal Symptoms - Problem List Review Problem List Initiated/Reviewed/Updated: Yes - My Orders Last 24 Hours: My Active Orders 11/17/17 11:45 BODY FLUID, CELL COUNT Routine 11/17/17 21:00 Ramelteon [Rozerem] 8 mg PO BEDTIME - Plan Plan:: HPI summary: Mrs. Walls is a 57yoF with a history notable for stage IV colon adenocarcinoma with recent hospitalization from 10/23/17 to 11/14/17 at [facility] for abdominal pain secondary to bowel obstruction who during the hospitalization developed peritonitis with septic shock and recurrent malignant ascites for which abdominal drain is now in place. She required several courses of antibiotics, TPN and PRBCs at times during her stay. She became significantly deconditioned and was discharged to [facility] for swing bed rehabilitation. Hospitalization problems: Altered mental status, profound however no focal neurological deficit on neuro exam, difficult to arouse however was able to respond appropriately motor commands however weak and flaccid, normal DTRs, not oriented to date time place or name, confusion, appears excessively sedated Hypokalemia, will need correcting # Deconditioning: Secondary to metastatic cancer and recent illness. 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 Ruffin, [facility]; next appt . Plan is to resume irinotecan and panitumumab at 20% dose reduction when stable. Referral has also been placed to go to [facility] for second opinion in the near future. Monitor peritoneal drain and prior peritoneal drain sites closely. # Hx peritonitis secondary to bowel perforation: Etiology E. coli and Strep anginosus. S/p 10 day course of cefepime and metronidazole. Now on prophylactic levofloxacin, which will be continued. 11/13/17 CT abdomen/pelvis with air in the ascites, which was felt to be secondary to the peritoneal drain and not bowel perforation. # Pain: Main sites include abdomen and back. Continue Tylenol prn. History suggestive of trigger point, for which may benefit from trigger point injections if persistent. # Anemia: Received 2 units PRBCs on 11/14/17. ongoing monitoring, Continue iron supplementation with vitamin C. # Protein calorie malnutrition: Received TPN for 2 weeks. Encourage healthy diet. # Depression and insomnia: Related to overall and recent medical difficulties. Mirtazepine recently started, will dc this as could be causing her AMS changes. 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 Continue levothyroxine at current dose. Hospitalization details: # FEN: No IVF. 11/14 electrolytes normal; continue monitoring Regular diet. # PPX: Ambulation for DVT ppx. # Code status: FULL code. Patient states that she is having a goals of care discussion with her family this weekend and will notify me of any changes in this status. # Emergency contact: , [place]. # Disposition: Admit to swing bed status for physical rehabilitation. Medical decision making. Correct potassium, assess for spontaneous bacterial peritonitis with peritoneal fluid sent for cell count although doubtful infectious etiology causing her AMS, suspect oversedation likely due to mirtazapine and acute hospital delirium, DC mirtazapine, add [place]. Will need to discuss with family regarding CODE STATUS.
[2017-11-18] MEDS: Ascorbic Acid 500 MG Tab PO SCH (12:30)
[2017-11-18] MEDS: Iron Polysaccharides Complex 150 MG Cap PO SCH (12:31)
[2017-11-18] MEDS: Levofloxacin/Dextrose 5%-Water 50 ML IV SCH (14:30)
[2017-11-18] MEDS: Acetaminophen 325 MG Tab PO PRN (14:34)
[2017-11-18] MEDS: Levofloxacin/Dextrose 5%-Water 100 ML IV SCH (16:15)
[2017-11-19] MEDS: Acetaminophen 325 MG Tab PO PRN ×2 (04:32→18:46)
[2017-11-19] MEDS: Levothyroxine 75 MCG Tab PO SCH (07:31)
[2017-11-19] MEDS: Iron Polysaccharides Complex 150 MG Cap PO SCH (09:27)
[2017-11-19] MEDS: Ascorbic Acid 500 MG Tab PO SCH ×2 (09:27→15:14)
[2017-11-19] MEDS: Sodium Chloride 0.9% 20 ML SDV FLUSH SCH ×3 (09:30→20:38)
[2017-11-19] MEDS: Levofloxacin/Dextrose 5%-Water 50 ML IV SCH (15:13)
[2017-11-19] MEDS: Levofloxacin/Dextrose 5%-Water 100 ML IV SCH (16:11)
[2017-11-19] MEDS: Ondansetron 4 MG/2 ML SDV IVPUSH PRN (17:10)
[2017-11-19] MEDS: Mirtazapine 15 MG Tab PO SCH (20:42)
[2017-11-20] MEDS: Ondansetron 4 MG/2 ML SDV IVPUSH PRN ×2 (04:17→09:02)
[2017-11-20] MEDS: Acetaminophen 325 MG Tab PO PRN ×2 (04:31→10:53)
[2017-11-20] MEDS: Levothyroxine 75 MCG Tab PO SCH (08:47)
[2017-11-20] MEDS: Iron Polysaccharides Complex 150 MG Cap PO SCH (08:47)
[2017-11-20] MEDS: Ascorbic Acid 500 MG Tab PO SCH (08:47)
[2017-11-20] MEDS: Sodium Chloride 0.9% 20 ML SDV FLUSH SCH ×3 (08:49→20:59)
[2017-11-20] MEDS ORDERED: Levofloxacin/Dextrose 5%-Water 50 ML IV SCH (09:15)
[2017-11-20] MEDS ORDERED: Levofloxacin/Dextrose 5%-Water 100 ML IV SCH (10:00)
[2017-11-20] MEDS: Mirtazapine 15 MG Tab PO SCH (21:00)
[2017-11-21] MEDS: Ondansetron 4 MG/2 ML SDV IVPUSH PRN ×2 (00:08→18:41)
[2017-11-21] MEDS: Sodium Chloride 0.9% 20 ML SDV FLUSH SCH ×4 (00:15→21:36)
[2017-11-21] MEDS: Acetaminophen 325 MG Tab PO PRN ×3 (00:46→19:30)
[2017-11-21] MEDS: Levothyroxine 75 MCG Tab PO SCH (10:49)
[2017-11-21] MEDS: Iron Polysaccharides Complex 150 MG Cap PO SCH (10:51)
[2017-11-21] MEDS: Ascorbic Acid 500 MG Tab PO SCH (10:51)
[2017-11-21] MEDS: Levofloxacin/Dextrose 5%-Water 50 ML IV SCH (16:01)
[2017-11-21] MEDS: Sodium Chloride 0.9% 100 ML IV SCH (16:01)
[2017-11-21] MEDS: Levofloxacin/Dextrose 5%-Water 100 ML IV SCH (17:08)
[2017-11-22] MEDS: Ondansetron 4 MG/2 ML SDV IVPUSH PRN ×3 (03:47→19:53)
[2017-11-22] MEDS: Sodium Chloride 0.9% 20 ML SDV FLUSH SCH ×4 (07:33→20:00)
[2017-11-22 08:05] LABS: ANION GAP 16.4 mmol/L (5-15); CHLORIDE,CL 107 mmol/L (98-115); SODIUM,NA 145 mmol/L (136-145)
[2017-11-22] MEDS: Levothyroxine 75 MCG Tab PO SCH (08:16)
[2017-11-22] MEDS: Iron Polysaccharides Complex 150 MG Cap PO SCH (08:17)
[2017-11-22] MEDS: Ascorbic Acid 500 MG Tab PO SCH (08:17)
[2017-11-22] MEDS: Levofloxacin/Dextrose 5%-Water 50 ML IV SCH (13:07)
[2017-11-22] MEDS: Levofloxacin/Dextrose 5%-Water 100 ML IV SCH (14:38)
[2017-11-22] MEDS: Sodium Chloride 0.9% 100 ML IV SCH (14:40)
[2017-11-22] MEDS: Acetaminophen 325 MG Tab PO PRN ×2 (14:53→22:12)
[2017-11-23] MEDS: Acetaminophen 325 MG Tab PO PRN ×2 (08:32→21:28)
[2017-11-23] MEDS: Levothyroxine 75 MCG Tab PO SCH (08:33)
[2017-11-23] MEDS: Iron Polysaccharides Complex 150 MG Cap PO SCH (11:14)
[2017-11-23] MEDS: Ascorbic Acid 500 MG Tab PO SCH (11:16)
[2017-11-23] MEDS: Sodium Chloride 0.9% 20 ML SDV FLUSH SCH ×3 (18:41→21:26)
[2017-11-23] MEDS: Sodium Chloride 0.9% 100 ML IV SCH (18:42)
[2017-11-23] MEDS: Levofloxacin/Dextrose 5%-Water 50 ML IV SCH (18:42)
[2017-11-23] MEDS: Levofloxacin/Dextrose 5%-Water 100 ML IV SCH (20:05)
[2017-11-24] MEDS: Levothyroxine 75 MCG Tab PO SCH (07:34)
[2017-11-24] MEDS: Ascorbic Acid 500 MG Tab PO SCH (08:48)
[2017-11-24] MEDS: Sodium Chloride 0.9% 20 ML SDV FLUSH SCH ×3 (08:49→21:05)
[2017-11-24] MEDS: Iron Polysaccharides Complex 150 MG Cap PO SCH (09:44)
[2017-11-24] MEDS: Acetaminophen 325 MG Tab PO PRN ×2 (09:44→22:25)
[2017-11-24] MEDS: Levofloxacin/Dextrose 5%-Water 50 ML IV SCH (13:06)
[2017-11-24] MEDS: Sodium Chloride 0.9% 100 ML IV SCH (13:09)
[2017-11-24] MEDS: Levofloxacin/Dextrose 5%-Water 100 ML IV SCH (14:19)
[2017-11-25] MEDS: Levothyroxine 75 MCG Tab PO SCH (09:25)
[2017-11-25] MEDS: Iron Polysaccharides Complex 150 MG Cap PO SCH (09:25)
[2017-11-25] MEDS: Ascorbic Acid 500 MG Tab PO SCH (09:25)
[2017-11-25] MEDS: Sodium Chloride 0.9% 20 ML SDV FLUSH SCH (09:25)
[2017-11-25] MEDS: Acetaminophen 325 MG Tab PO PRN (09:26)
[2017-11-25] MEDS: Ondansetron 4 MG Tab.DIS PO PRN ×3 (09:40→18:03)
[2017-11-25] MEDS: Acetaminophen 650 MG Tab.ER PO SCH ×3 (13:55→23:45)
[2017-11-26] MEDS: Acetaminophen 650 MG Tab.ER PO SCH ×5 (04:03→22:06)
[2017-11-26] MEDS: Levothyroxine 75 MCG Tab PO SCH (07:39)
[2017-11-26] MEDS: Iron Polysaccharides Complex 150 MG Cap PO SCH (09:39)
[2017-11-26] MEDS: Ascorbic Acid 500 MG Tab PO SCH (09:39)
[2017-11-26] MEDS: PROMETHAZINE TOP PRN (12:51)
[2017-11-26] MEDS ORDERED: Promethazine Topical Gel 0.5 ML Syringe TOP ONE (12:51)
[2017-11-26] MEDS: Metoclopramide 10 MG Tab PO PRN (12:52)
[2017-11-27] MEDS: Acetaminophen 650 MG Tab.ER PO SCH ×4 (05:47→22:05)
[2017-11-27] MEDS: Levothyroxine 75 MCG Tab PO SCH ×3 (05:47→06:30)
[2017-11-27] MEDS: Iron Polysaccharides Complex 150 MG Cap PO SCH (09:18)
[2017-11-27] MEDS: Ascorbic Acid 500 MG Tab PO SCH (09:19)
[2017-11-27] MEDS: Metoclopramide 10 MG Tab PO PRN ×2 (10:11→16:59)
[2017-11-27] MEDS: PROMETHAZINE TOP PRN (23:42)
[2017-11-28] MEDS: Metoclopramide 10 MG Tab PO PRN ×3 (03:09→16:04)
[2017-11-28] MEDS: Acetaminophen 650 MG Tab.ER PO SCH ×2 (04:32→10:02)
[2017-11-28] MEDS: Levothyroxine 75 MCG Tab PO SCH (06:46)
[2017-11-28] MEDS: PROMETHAZINE TOP PRN (09:13)
[2017-11-28] MEDS: Iron Polysaccharides Complex 150 MG Cap PO SCH (10:00)
[2017-11-28] MEDS: Ascorbic Acid 500 MG Tab PO SCH (10:00)
[2017-11-28] MEDS: Lidocaine 5% 700 MG Patch TOP SCH (12:29)
[2017-11-28] MEDS ORDERED: ClonazePAM 0.5 MG Tab PO PRN (12:30)
[2017-11-28] MEDS: Promethazine Topical Gel 0.5 ML Syringe TOP PRN (15:36)
[2017-11-28] MEDS: Ondansetron 4 MG Tab.DIS PO PRN (18:31)
[2017-11-28] MEDS: Acetaminophen 325 MG Tab PO PRN (20:27)
[2017-11-28] MEDS ORDERED: Acetaminophen 650 MG Supp RECTAL PRN (21:17)
[2017-11-29] MEDS: Promethazine Topical Gel 0.5 ML Syringe TOP PRN ×3 (01:14→18:33)
[2017-11-29] MEDS: Acetaminophen 325 MG Tab PO PRN ×3 (06:22→20:18)
[2017-11-29] MEDS: Iron Polysaccharides Complex 150 MG Cap PO SCH (09:50)
[2017-11-29] MEDS: Ascorbic Acid 500 MG Tab PO SCH (09:50)
[2017-11-29] MEDS: Levothyroxine 75 MCG Tab PO SCH (09:50)
[2017-11-29] MEDS: Lidocaine 5% 700 MG Patch TOP SCH (12:43)
[2017-11-29] MEDS ORDERED: Prochlorperazine 5 MG Tab PO PRN (13:13)
--- NOTE | 2017-11-29 13:18 | PCM.PN ---
- General Info Date of Service: 11/29/17 Admission Dx/Problem (Free Text): Admission Diagnosis/Problem Admission Diagnosis/Problem Debility Subjective Update: Ms. Walls reports increased intermittent nausea in the past 1-2 days. Has improved with medications, but she is hesitant to take anything. Appetite continues to be very poor and has had limited intake. Continues to have low back pain, but this has improved with lidocaine patch and position changes. Also having abdominal distension, fairly stable from prior, but intermittently causes more pain. Overall feels she has been getting stronger with physical therapy. Admits to concern over being able to be strong enough to go home in the near future, but is hopeful she will continue to improve. - Patient Data Vitals - Most Recent: Last Vital Signs Temp 36.5 C 11/29/17 06:06 Pulse 98 11/29/17 06:06 Resp 16 11/29/17 06:06 BP 117/74 11/29/17 06:06 Pulse Ox 94 L 11/29/17 09:00 Weight - Most Recent: 69.598 kg I&O - Last 24 Hours: Intake & Output 11/28/17 11/29/17 11/29/17 22:59 06:59 14:59 Intake Total 80 Output Total 660 160 Balance -580 -160 Med Orders - Current: Current Medications Acetaminophen (Tylenol) 650 mg PO Q6H PRN PRN Reason: Pain (moderate 4-6) Last Admin: 11/29/17 13:10 Dose: 650 mg Acetaminophen (Tylenol) 650 mg RECTAL Q6H PRN PRN Reason: Pain Clonazepam (Klonopin) 0.5 mg PO BID PRN PRN Reason: Other Last Admin: 11/29/17 13:11 Dose: 0.5 mg Levothyroxine Sodium (Levothyroxine) 150 mcg PO ACBREAKFAST [facility] Last Admin: 11/29/17 09:50 Dose: Not Given Lidocaine (Lidoderm 5%) 700 mg TOP DAILY@1159 [facility] Last Admin: 11/29/17 12:43 Dose: 700 mg Miscellaneous Information (Remove Patch) 1 ea TRDERM DAILY@3259 [facility] Last Admin: 11/29/17 01:11 Dose: 1 ea Ondansetron HCl (Zofran Odt) 8 mg PO Q6H PRN PRN Reason: Nausea/Vomiting Last Admin: 11/28/17 18:31 Dose: 8 mg Prochlorperazine Maleate (Compazine) 5 mg PO Q6H PRN PRN Reason: Nausea/Vomiting Promethazine HCl (Phenergan) 0 ml TOP Q6H PRN PRN Reason: Nausea Last Admin: 11/29/17 11:55 Dose: 0.5 ml Ramelteon (Rozerem) 8 mg PO BEDTIME PRN PRN Reason: insomnia Last Admin: 11/28/17 22:47 Dose: 8 mg Discontinued Medications Acetaminophen (Tylenol) 650 mg PO Q4H PRN PRN Reason: Pain (mild 1-3) Last Admin: 11/25/17 09:26 Dose: 650 mg Acetaminophen (Tylenol) 650 mg RECTAL Q4H PRN PRN Reason: Fever Last Admin: 11/16/17 20:23 Dose: 650 mg Acetaminophen (Tylenol Arthritis Pain) 650 mg PO Q6HR [place] Last Admin: 11/28/17 10:02 Dose: 650 mg Ascorbic Acid (Vitamin C) 500 mg PO DAILY [facility] Last Admin: 11/29/17 09:50 Dose: Not Given Ferrous Sulfate (Slow Release Iron) 160 mg PO DAILY [facility] Last Admin: 11/16/17 15:30 Dose: Not Given Heparin Sodium (Porcine) (Heparin Lock Flush 100 Units/Ml) 500 units FLUSH ASDIRECTED ONE Stop: 11/24/17 15:36 Last Admin: 11/24/17 15:57 Dose: 500 units Levofloxacin/Dextrose 250 mg/ (Premix) 50 mls @ 50 mls/hr IV ONETIME [place] Last Admin: 11/16/17 12:24 Dose: 50 mls/hr Levofloxacin/Dextrose 500 mg/ (Premix) 100 mls @ 100 mls/hr IV ONETIME [place] Last Admin: 11/16/17 15:29 Dose: 100 mls/hr Sodium Chloride (Normal Saline) 1,000 mls @ 125 mls/hr IV ASDIRECTED [facility] Last Admin: 11/16/17 21:29 Dose: 125 mls/hr Potassium Chloride/Sodium Chloride (Normal Saline With 20 Meq Kcl) 1,000 mls @ 125 mls/hr IV ASDIRECTED [facility] Last Admin: 11/16/17 23:06 Dose: 125 mls/hr Levofloxacin/Dextrose (Levaquin In D5w 250 Mg/50 Ml) 50 mls @ 50 mls/hr IV DAILY@1330 [facility] Last Admin: 11/19/17 15:13 Dose: 50 mls/hr Levofloxacin/Dextrose (Levaquin In D5w 500 Mg/100 Ml) 100 mls @ 100 mls/hr IV DAILY@1430 [facility] Last Admin: 11/19/17 16:11 Dose: 100 mls/hr Sodium Chloride (Normal Saline) Confirm Administered Dose 150 mls @ as directed .ROUTE .STK-MED ONE Stop: 11/17/17 14:46 Last Admin: 11/17/17 15:15 Dose: 50 mls/hr Potassium Chloride 20 meq/ (Premix) 100 mls @ 50 mls/hr IV ONETIME ONE Stop: 11/18/17 00:24 Last Admin: 11/17/17 22:39 Dose: 50 mls/hr Levofloxacin/Dextrose (Levaquin In D5w 250 Mg/50 Ml) 50 mls @ 70 mls/hr IV DAILY@0915 [facility] Last Admin: 11/20/17 12:19 Dose: 70 mls/hr Levofloxacin/Dextrose (Levaquin In D5w 500 Mg/100 Ml) 100 mls @ 100 mls/hr IV DAILY@1000 [facility] Last Admin: 11/20/17 09:52 Dose: 143 mls/hr Levofloxacin/Dextrose (Levaquin In D5w 250 Mg/50 Ml) 50 mls @ 50 mls/hr IV DAILY@1300 [facility] Last Admin: 11/24/17 13:06 Dose: 50 mls/hr Levofloxacin/Dextrose (Levaquin In D5w 500 Mg/100 Ml) 100 mls @ 100 mls/hr IV DAILY@1400 [facility] Last Admin: 11/24/17 14:19 Dose: 100 mls/hr Sodium Chloride (Normal Saline) 100 mls @ 20 mls/hr IV DAILY@1300 [facility] Last Admin: 11/24/17 13:09 Dose: 20 mls/hr Levofloxacin (Levaquin) 750 mg PO DAILY [facility] Last Admin: 11/15/17 10:27 Dose: 500 mg Levothyroxine Sodium (Synthroid) 100 mcg PO ACBREAKFAST [facility] Lorazepam (Ativan) 0.5 mg PO Q6H PRN PRN Reason: Agitation Stop: 11/17/17 10:22 Last Admin: 11/16/17 16:09 Dose: 0.5 mg Melatonin (Melatonin) 3 mg PO BEDTIME PRN PRN Reason: Insomnia Metoclopramide HCl (Reglan) 5 mg PO Q6H PRN PRN Reason: Nausea/Vomiting Last Admin: 11/28/17 16:04 Dose: 5 mg Mirtazapine (Remeron) 30 mg PO BEDTIME [facility] Last Admin: 11/14/17 21:26 Dose: 30 mg Mirtazapine (Remeron) 15 mg PO BEDTIME [facility] Last Admin: 11/20/17 21:00 Dose: Not Given Promethazine Topical (Gel 1 Ml Syringe) 0 each TOP Q6H PRN PRN Reason: Nausea Last Admin: 11/28/17 09:13 Dose: 1 each Ondansetron HCl (Zofran Odt) 4 mg PO Q8H PRN PRN Reason: Nausea/Vomiting Ondansetron HCl (Zofran Odt) 8 mg PO Q8H PRN PRN Reason: Nausea/Vomiting Ondansetron HCl (Zofran) 8 mg IVPUSH Q6H PRN PRN Reason: Nausea/Vomiting Last Admin: 11/22/17 19:53 Dose: 8 mg Polysaccharide Iron Complex (Ferrex 150) 150 mg PO DAILY [facility] Last Admin: 11/29/17 09:50 Dose: Not Given Potassium Bicarb/Potassium Chloride (Potassium Chloride, Effervescent) 25 meq PO ONETIME ONE Stop: 11/17/17 18:21 Last Admin: 11/17/17 18:30 Dose: 25 meq Potassium Bicarb/Potassium Chloride (Potassium Chloride, Effervescent) 25 meq PO ONETIME ONE Stop: 11/17/17 21:01 Last Admin: 11/17/17 23:16 Dose: Not Given Potassium Bicarb/Potassium Chloride (Potassium Chloride, Effervescent) 25 meq PO DAILY [facility] Promethazine HCl (Phenergan) 0.5 ml TOP .STK-MED ONE Stop: 11/26/17 12:52 Ramelteon (Rozerem) 8 mg PO BEDTIME [facility] Last Admin: 11/20/17 21:00 Dose: Not Given Sodium Chloride (Normal Saline) 20 ml FLUSH TID [facility] Last Admin: 11/25/17 09:25 Dose: Not Given - Exam General: Alert, Oriented, Cooperative, No Acute Distress, Other (Cachectic appearing) HEENT: Mucous Membr. Moist/[place] Neck: Supple Lungs: Clear to Auscultation, Normal Respiratory Effort Cardiovascular: Regular Rate, Regular Rhythm, No Murmurs GI/Abdominal Exam: Distended (Mild-Moderate), Tender (Diffuse). No: Guarding, Rigid, Rebound Back Exam: Normal Inspection, Paraspinal Tenderness Skin: Warm, Dry Psy/Mental Status: Alert, Other (Flattened affect) - Problem List Review Problem List Initiated/Reviewed/Updated: Yes - My Orders Last 24 Hours: My Active Orders 11/28/17 21:17 Acetaminophen [Tylenol] 650 mg RECTAL Q6H PRN 11/29/17 13:07 Consult to Hospice [CONS] Routine 11/29/17 13:13 Prochlorperazine [Compazine] 5 mg PO Q6H PRN - Plan Plan:: HPI summary: Mrs. Walls is a 57yoF with a history notable for stage IV colon adenocarcinoma with recent hospitalization from 10/23/17 to 11/14/17 at [facility] for abdominal pain secondary to bowel obstruction who during the hospitalization developed peritonitis with septic shock and recurrent malignant ascites for which abdominal drain is now in place. She required several courses of antibiotics, TPN and PRBCs at times during her stay. She became significantly deconditioned and was discharged to [facility] for swing bed rehabilitation. 11/29/17 update: Discussed current status and symptoms at bedside with Paula and several family members. Also discussed prior oncology appointment and their understanding that there are [id number] treatment options available. They state she was told she had a month or so to live at her 11/20/[address] Ruffin. She would like to be able to get strong enough to go home, but has limited assistance at home and is concerned about this being feasible. Had further discussion about wishes regarding ongoing care and will proceed with hospice referral for further discussion about services and resources. In total, spent 65 minutes of [id number] time with patient with >50% spent in counseling and coordination of care. Hospitalization problems: # Deconditioning: Secondary to metastatic cancer and recent illness. Continue physical therapy, with which she has been having improvement. 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 Ruffin, [facility]; last appt , when molecular testing was sent, but she and her state that they were informed that there may not be any futher treatment options as [facility] had also declined consultation stating that there weren't any known treatment options for her. She has upcoming appt on 12/12/[address] Ruffin. # Hx peritonitis secondary to bowel perforation: Etiology E. coli and Strep anginosus. 11/13/17 CT abdomen/pelvis with air in the ascites, which was felt to be secondary to the peritoneal drain and not bowel perforation. S/p 10 day course of cefepime and metronidazole. Admitted on prophylactic levofloxacin, which was changed to IV during period of time when she wasn't tolerating oral intake and appears to have since been discontinued. Restart levofloxacin. # Nausea: Ongoing, intermittent. Multiple pharmacologic treatments made available. # Pain: Main sites include abdomen and back. Continue Tylenol prn, lidocaine patch, and topical analgesic cream. # Anemia: Received 2 units PRBCs on 11/14/17. Hgb 9.1 on 11/18/17. Patient declines taking the iron and vitamin C, which has been ordered since admission. # Protein calorie malnutrition: Received TPN for 2 weeks. Encourage healthy diet. # Depression and insomnia: Related to overall and recent medical difficulties. Mirtazepine previously discontinued due to likely associated acute encephalopathy, which has since resolved. Continue ramelteon. 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 Continue levothyroxine at current dose. Hospitalization details: # FEN: No IVF. 11/22 electrolytes normal. Regular diet, as tolerated. # PPX: Ambulation for DVT ppx. # Code status: FULL code. Not specifically readdressed this morning, but will further discuss after discussion with hospice. # Emergency contact: , Gibson, who was updated at bedside. # Disposition: Continue on swing bed status for physical rehabilitation. Consider hospice care in the future pending ongoing course.
[2017-11-30] MEDS: Acetaminophen 325 MG Tab PO PRN ×3 (02:39→23:55)
[2017-11-30] MEDS: Levothyroxine 75 MCG Tab PO SCH (09:45)
[2017-11-30] MEDS: Lidocaine 5% 700 MG Patch TOP SCH (14:01)
[2017-11-30] MEDS: Promethazine Topical Gel 0.5 ML Syringe TOP PRN (14:01)
[2017-11-30] MEDS: Ondansetron 4 MG Tab.DIS PO PRN (14:15)
[2017-12-01] MEDS: Levothyroxine 75 MCG Tab PO SCH (06:36)
[2017-12-01] MEDS: Acetaminophen 325 MG Tab PO PRN ×3 (06:36→19:15)
[2017-12-01] MEDS: Levofloxacin 500 MG Tab PO SCH (09:50)
[2017-12-01] MEDS: Lidocaine 5% 700 MG Patch TOP SCH (12:52)
[2017-12-01] MEDS: Promethazine Topical Gel 0.5 ML Syringe TOP PRN (21:42)
[2017-12-02] MEDS: Acetaminophen 325 MG Tab PO PRN ×4 (01:37→22:28)
[2017-12-02] MEDS: Levothyroxine 75 MCG Tab PO SCH (07:28)
[2017-12-02] MEDS: Levofloxacin 500 MG Tab PO SCH (08:38)
[2017-12-02] MEDS: predniSONE 10 MG Tab PO SCH (11:34)
[2017-12-02] MEDS: Diclofenac Sodium 1% Gel 100 GM Tube TOP PRN ×3 (11:37→21:16)
[2017-12-02] MEDS: Lidocaine 5% 700 MG Patch TOP SCH (14:14)
[2017-12-03] MEDS: Levothyroxine 75 MCG Tab PO SCH ×2 (05:50→06:32)
[2017-12-03] MEDS: Levofloxacin 500 MG Tab PO SCH (09:35)
[2017-12-03] MEDS: Diclofenac Sodium 1% Gel 100 GM Tube TOP PRN ×3 (09:36→21:57)
[2017-12-03] MEDS: Promethazine Topical Gel 0.5 ML Syringe TOP PRN ×2 (09:38→21:07)
[2017-12-03] MEDS: predniSONE 10 MG Tab PO SCH (12:14)
[2017-12-03] MEDS: Acetaminophen 325 MG Tab PO PRN ×2 (12:14→21:57)
[2017-12-03] MEDS: Lidocaine 5% 700 MG Patch TOP SCH (12:15)
[2017-12-03] MEDS ORDERED: Morphine 2 MG/ML Syringe IVPUSH ONE (16:41)
[2017-12-03] MEDS ORDERED: Morphine 2 MG/ML Syringe IVPUSH PRN (21:17)
[2017-12-04] MEDS: Acetaminophen 325 MG Tab PO PRN ×2 (00:23→21:03)
[2017-12-04] MEDS: Ondansetron 4 MG/2 ML SDV IVPUSH PRN ×2 (01:01→08:03)
[2017-12-04] MEDS: Levothyroxine 75 MCG Tab PO SCH (07:55)
[2017-12-04] MEDS ORDERED: Sodium Chloride 0.9% 10 ML Syringe IV PRN (09:14)
[2017-12-04] MEDS: Levofloxacin 500 MG Tab PO SCH (09:51)
--- NOTE | 2017-12-04 11:25 | PCM.PN ---
- General Info Date of Service: 12/04/17 Functional Status: Reports: Pain Controlled, Tolerating Diet, Ambulating, Urinating, New Symptoms (Nurses report any likely drainage resembling stool from her Pleurx site) - Review of Systems General: Reports: Weakness, Fatigue, Malaise, Appetite. Denies: Chills, Night Sweats HEENT: Reports: No Symptoms Pulmonary: Reports: No Symptoms Cardiovascular: Reports: No Symptoms Gastrointestinal: Reports: Decreased Appetite. Denies: Abdominal Pain, Diarrhea , Difficulty Swallowing, Nausea, Vomiting Skin: Reports: Other (Slight erythema around site of Pleurx) Neurological: Reports: Weakness. Denies: Confusion, Dizziness Psychiatric: Reports: Mood Lability. Denies: Confusion, Agitation, Cravings - Patient Data Vitals - Most Recent: Last Vital Signs Temp 98.4 F 12/04/17 07:53 Pulse 88 12/04/17 07:53 Resp 20 12/04/17 07:53 BP 98/52 L 12/04/17 07:53 Pulse Ox 96 12/04/17 08:12 Weight - Most Recent: 153 lb 7 oz I&O - Last 24 Hours: Intake & Output 12/03/17 12/04/17 12/04/17 22:59 06:59 14:59 Intake Total 100 50 Output Total 430 Balance -330 50 Med Orders - Current: Current Medications Acetaminophen (Tylenol) 650 mg PO Q6H PRN PRN Reason: Pain (moderate 4-6) Last Admin: 12/04/17 00:23 Dose: 650 mg Acetaminophen (Tylenol) 650 mg RECTAL Q6H PRN PRN Reason: Pain Clonazepam (Klonopin) 0.5 mg PO BID PRN PRN Reason: Other Last Admin: 11/29/17 13:11 Dose: 0.5 mg Diclofenac Sodium (Voltaren 1% Gel) 2 gm TOP QID PRN PRN Reason: Pain Last Admin: 12/03/17 21:57 Dose: 1 applic Levofloxacin (Levaquin) 750 mg PO Q24H [facility] Last Admin: 12/04/17 09:51 Dose: 750 mg Levothyroxine Sodium (Levothyroxine) 150 mcg PO ACBREAKFAST [facility] Last Admin: 12/04/17 07:55 Dose: 150 mcg Lidocaine (Lidoderm 5%) 700 mg TOP DAILY@1159 [facility] Last Admin: 12/03/17 12:15 Dose: 700 mg Miscellaneous Information (Remove Patch) 1 ea TRDERM DAILY@2414 [facility] Last Admin: 12/04/17 00:29 Dose: 1 ea Morphine Sulfate (Morphine) 1 - 2 mg IVPUSH Q3H PRN PRN Reason: pain Ondansetron HCl (Zofran Odt) 8 mg PO Q6H PRN PRN Reason: Nausea/Vomiting Last Admin: 11/30/17 14:15 Dose: 8 mg Ondansetron HCl (Zofran) 4 mg IVPUSH Q6H [facility] Prednisone (Prednisone) 10 mg PO DAILY@1200 [facility] Last Admin: 12/03/17 12:14 Dose: 10 mg Prochlorperazine Maleate (Compazine) 5 mg PO Q6H PRN PRN Reason: Nausea/Vomiting Promethazine HCl (Phenergan) 0 ml TOP Q6H PRN PRN Reason: Nausea Last Admin: 12/03/17 21:07 Dose: 0.5 ml Ramelteon (Rozerem) 8 mg PO BEDTIME PRN PRN Reason: insomnia Last Admin: 12/03/17 22:09 Dose: 8 mg Ranitidine HCl (Zantac) 150 mg PO BIDAC [facility] Last Admin: 12/04/17 08:10 Dose: 150 mg Sodium Chloride (Saline Flush) 20 ml IV ASDIRECTED PRN PRN Reason: port flush Discontinued Medications Acetaminophen (Tylenol) 650 mg PO Q4H PRN PRN Reason: Pain (mild 1-3) Last Admin: 11/25/17 09:26 Dose: 650 mg Acetaminophen (Tylenol) 650 mg RECTAL Q4H PRN PRN Reason: Fever Last Admin: 11/16/17 20:23 Dose: 650 mg Acetaminophen (Tylenol Arthritis Pain) 650 mg PO Q6HR [facility] Last Admin: 11/28/17 10:02 Dose: 650 mg Ascorbic Acid (Vitamin C) 500 mg PO DAILY [facility] Last Admin: 11/29/17 09:50 Dose: Not Given Ferrous Sulfate (Slow Release Iron) 160 mg PO DAILY [facility] Last Admin: 11/16/17 15:30 Dose: Not Given Heparin Sodium (Porcine) (Heparin Lock Flush 100 Units/Ml) 500 units FLUSH ASDIRECTED ONE Stop: 11/24/17 15:36 Last Admin: 11/24/17 15:57 Dose: 500 units Levofloxacin/Dextrose 250 mg/ (Premix) 50 mls @ 50 mls/hr IV ONETIME [facility] Last Admin: 11/16/17 12:24 Dose: 50 mls/hr Levofloxacin/Dextrose 500 mg/ (Premix) 100 mls @ 100 mls/hr IV ONETIME [facility] Last Admin: 11/16/17 15:29 Dose: 100 mls/hr Sodium Chloride (Normal Saline) 1,000 mls @ 125 mls/hr IV ASDIRECTED [facility] Last Admin: 11/16/17 21:29 Dose: 125 mls/hr Potassium Chloride/Sodium Chloride (Normal Saline With 20 Meq Kcl) 1,000 mls @ 125 mls/hr IV ASDIRECTED [facility] Last Admin: 11/16/17 23:06 Dose: 125 mls/hr Levofloxacin/Dextrose (Levaquin In D5w 250 Mg/50 Ml) 50 mls @ 50 mls/hr IV DAILY@1330 [facility] Last Admin: 11/19/17 15:13 Dose: 50 mls/hr Levofloxacin/Dextrose (Levaquin In D5w 500 Mg/100 Ml) 100 mls @ 100 mls/hr IV DAILY@1430 [facility] Last Admin: 11/19/17 16:11 Dose: 100 mls/hr Sodium Chloride (Normal Saline) Confirm Administered Dose 150 mls @ as directed .ROUTE .STK-MED ONE Stop: 11/17/17 14:46 Last Admin: 11/17/17 15:15 Dose: 50 mls/hr Potassium Chloride 20 meq/ (Premix) 100 mls @ 50 mls/hr IV ONETIME ONE Stop: 11/18/17 00:24 Last Admin: 11/17/17 22:39 Dose: 50 mls/hr Levofloxacin/Dextrose (Levaquin In D5w 250 Mg/50 Ml) 50 mls @ 70 mls/hr IV DAILY@0915 [facility] Last Admin: 11/20/17 12:19 Dose: 70 mls/hr Levofloxacin/Dextrose (Levaquin In D5w 500 Mg/100 Ml) 100 mls @ 100 mls/hr IV DAILY@1000 [facility] Last Admin: 11/20/17 09:52 Dose: 143 mls/hr Levofloxacin/Dextrose (Levaquin In D5w 250 Mg/50 Ml) 50 mls @ 50 mls/hr IV DAILY@1300 [facility] Last Admin: 11/24/17 13:06 Dose: 50 mls/hr Levofloxacin/Dextrose (Levaquin In D5w 500 Mg/100 Ml) 100 mls @ 100 mls/hr IV DAILY@1400 [facility] Last Admin: 11/24/17 14:19 Dose: 100 mls/hr Sodium Chloride (Normal Saline) 100 mls @ 20 mls/hr IV DAILY@1300 [facility] Last Admin: 11/24/17 13:09 Dose: 20 mls/hr Levofloxacin (Levaquin) 750 mg PO DAILY [facility] Last Admin: 11/15/17 10:27 Dose: 500 mg Levothyroxine Sodium (Synthroid) 100 mcg PO ACBREAKFAST [facility] Lorazepam (Ativan) 0.5 mg PO Q6H PRN PRN Reason: Agitation Stop: 11/17/17 10:22 Last Admin: 11/16/17 16:09 Dose: 0.5 mg Melatonin (Melatonin) 3 mg PO BEDTIME PRN PRN Reason: Insomnia Metoclopramide HCl (Reglan) 5 mg PO Q6H PRN PRN Reason: Nausea/Vomiting Last Admin: 11/28/17 16:04 Dose: 5 mg Mirtazapine (Remeron) 30 mg PO BEDTIME [facility] Last Admin: 11/14/17 21:26 Dose: 30 mg Mirtazapine (Remeron) 15 mg PO BEDTIME [facility] Last Admin: 11/20/17 21:00 Dose: Not Given Morphine Sulfate (Morphine) 2 mg IVPUSH ONETIME ONE Stop: 12/03/17 16:42 Last Admin: 12/03/17 17:17 Dose: 2 mg Morphine Sulfate (Morphine) 2 mg IVPUSH Q3H PRN PRN Reason: Pain Last Admin: 12/04/17 01:30 Dose: 2 mg Promethazine Topical (Gel 1 Ml Syringe) 0 each TOP Q6H PRN PRN Reason: Nausea Last Admin: 11/28/17 09:13 Dose: 1 each Ondansetron HCl (Zofran Odt) 4 mg PO Q8H PRN PRN Reason: Nausea/Vomiting Ondansetron HCl (Zofran Odt) 8 mg PO Q8H PRN PRN Reason: Nausea/Vomiting Ondansetron HCl (Zofran) 8 mg IVPUSH Q6H PRN PRN Reason: Nausea/Vomiting Last Admin: 11/22/17 19:53 Dose: 8 mg Ondansetron HCl (Zofran) 4 mg IVPUSH Q6H PRN PRN Reason: Nausea/Vomiting Last Admin: 12/04/17 08:03 Dose: 4 mg Polysaccharide Iron Complex (Ferrex 150) 150 mg PO DAILY [facility] Last Admin: 11/29/17 09:50 Dose: Not Given Potassium Bicarb/Potassium Chloride (Potassium Chloride, Effervescent) 25 meq PO ONETIME ONE Stop: 11/17/17 18:21 Last Admin: 11/17/17 18:30 Dose: 25 meq Potassium Bicarb/Potassium Chloride (Potassium Chloride, Effervescent) 25 meq PO ONETIME ONE Stop: 11/17/17 21:01 Last Admin: 11/17/17 23:16 Dose: Not Given Potassium Bicarb/Potassium Chloride (Potassium Chloride, Effervescent) 25 meq PO DAILY [facility] Promethazine HCl (Phenergan) 0.5 ml TOP .STK-MED ONE Stop: 11/26/17 12:52 Ramelteon (Rozerem) 8 mg PO BEDTIME [facility] Last Admin: 11/20/17 21:00 Dose: Not Given Sodium Chloride (Normal Saline) 20 ml FLUSH TID [facility] Last Admin: 11/25/17 09:25 Dose: Not Given - Exam Quality Assessment: No: Supplemental Oxygen General: Alert, Oriented, Cooperative, No Acute Distress Lungs: Normal Respiratory Effort Cardiovascular: Regular Rate, Regular Rhythm GI/Abdominal Exam: Distended (Abdomen distended however no more than baseline,) , Rigid, Abnormal Bowel Sounds (High pitch bowel tones) Wound/Incisions: Erythema, Other (Pleurx catheter shows dark thick brown in catheter and no longer draining appropriately ) Neurological: Normal Speech Psy/Mental Status: Alert, Labile Mood - Problem List Review Problem List Initiated/Reviewed/Updated: Yes - My Orders Last 24 Hours: My Active Orders 12/04/17 09:14 Sodium Chloride 0.9% [Saline Flush] 20 ml IV ASDIRECTED PRN 12/04/17 11:11 Morphine 1 - 2 mg IVPUSH Q3H PRN 12/04/17 11:14 Communication Order [RC] DAILY 12/04/17 11:15 Ondansetron [Zofran] 4 mg IVPUSH Q6H - Plan Plan:: HPI summary: Mrs. Walls is a 57yoF with a history notable for stage IV colon adenocarcinoma with recent hospitalization from 10/23/17 to 11/14/[address] [facility] for abdominal pain secondary to bowel obstruction who during the hospitalization developed peritonitis with septic shock and recurrent malignant ascites for which abdominal drain is now in place. She required several courses of antibiotics, TPN and PRBCs at times during her stay. She became significantly deconditioned and was discharged to [facility] for swing bed rehabilitation. 12/04/17 update: Was notified by nurses of patient's dark brown liquid foul- smelling drainage consistent of stool soaked her dressing around her Pleurx catheter. Pleurx catheter tubing shows thick brown drainage no longer draining appropriately. Patient has no abdominal pain, no increase in abdominal rigidity. Denies nausea however vomited one time yesterday. Feels quite comfortable now however last BM 4 days ago. Is passing flatus Hospitalization problems: --Perforated bowel, no surgical treatment option for patient. Expectant mgt. continue with prophylaxis Levaquin # Deconditioning: Profound weakness and fatigue Secondary to metastatic cancer and recent illness. Continue physical therapy, with which she has been having improvement. 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 Dawn, [facility]; last appt , when molecular testing was sent, but she and her state that they were informed that there may not be any futher treatment options as [facility] had also declined consultation stating that there weren't any known treatment options for her. She has upcoming appt on 12/12/[address] Dawn. # Hx peritonitis secondary to bowel perforation: Etiology E. coli and Strep anginosus. 11/13/17 CT abdomen/pelvis with air in the ascites, which was felt to be secondary to the peritoneal drain and not bowel perforation. S/p 10 day course of cefepime and metronidazole. Admitted on prophylactic levofloxacin, which was changed to IV during period of time when she wasn't tolerating oral intake--this has been restarted. # Nausea: Seems to have improved since starting prednisone 10 mg by mouth daily. change Zofran to scheduled. Important her meals appear appealing to her. # Pain: Mainly musculoskeletal low back, Significant improvement since starting morphine. Range orders given to nursing staff today. Continue Tylenol prn, lidocaine patch, and topical analgesic cream. # Anemia: Received 2 units PRBCs on 11/14/17. Hgb 9.1 on 11/18/17. Patient declines taking the iron and vitamin C, which has been ordered since admission. # Protein calorie malnutrition: Due to her CA likely will be ongoing problem however important patient selects meals that are appealing to her. Does have a history of anasarca however no edema at this time. # Depression and insomnia: Related to overall and recent medical difficulties. Mirtazepine previously discontinued due to likely associated acute encephalopathy, which has since resolved. Continue ramelteon. Encouraged family support. Appears patient has progressed expectantly appropriately through a grieving process regarding her terminal illness. 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 Continue levothyroxine at current dose. Hospitalization details: # FEN: No IVF. 11/22 electrolytes normal. Regular diet, as tolerated. No more lab draws. # PPX: Ambulation for DVT ppx. # Code status: DO NOT RESUSCITATE. # Emergency contact: , Gibson, # Disposition: Continue with SNF at this time possible hospice placement. Dr. Pinzonck previous discussion with patient and family regarding [id number] treatment options available. They state she was told she had a month or so to live at her 11/20/[address] Dawn. She would like to be able to get strong enough to go home, but has limited assistance at home and is concerned about this being feasible. discussion about wishes regarding ongoing care and will proceed with hospice referral for further discussion about services and resources. Consultation, discussed case this morning with Dr. Dawn her oncologist regarding her bowel perforation. She is a very poor surgical candidate and patient does not desire any intervention as she feels her condition is terminal. Long discussion with patient regarding symptom burden/management. Continue with prednisone for her nausea, change Zofran to schedule, change morphine to range orders.
[2017-12-04] MEDS ORDERED: Ondansetron 4 MG/2 ML SDV IVPUSH SCH (12:00)
[2017-12-04] MEDS: Lidocaine 5% 700 MG Patch TOP SCH (12:07)
[2017-12-04] MEDS: Sodium Chloride 0.9% 10 ML Syringe IV SCH ×3 (12:09→23:27)
[2017-12-04] MEDS: predniSONE 10 MG Tab PO SCH (12:18)
[2017-12-04] MEDS: Promethazine Topical Gel 0.5 ML Syringe TOP PRN (15:27)
[2017-12-04] MEDS: Morphine 2 MG/ML Syringe IVPUSH PRN ×2 (15:31→23:35)
[2017-12-05] MEDS: Diclofenac Sodium 1% Gel 100 GM Tube TOP PRN (04:11)
[2017-12-05] MEDS: Acetaminophen 325 MG Tab PO PRN ×3 (04:11→18:47)
[2017-12-05] MEDS: Sodium Chloride 0.9% 10 ML Syringe IV SCH ×4 (06:02→23:53)
[2017-12-05] MEDS: Levothyroxine 75 MCG Tab PO SCH ×2 (06:17→06:33)
[2017-12-05] MEDS: Morphine 2 MG/ML Syringe IVPUSH PRN ×2 (06:34→21:45)
[2017-12-05] MEDS ORDERED: LORazepam 2 MG/ML SDV IVPUSH PRN (10:07)
[2017-12-05] MEDS: Levofloxacin 500 MG Tab PO SCH (10:11)
[2017-12-05] MEDS: Pantoprazole 40 MG Vial IVPUSH SCH (11:10)
[2017-12-05] MEDS: Levofloxacin/Dextrose 5%-Water 100 ML IV SCH (11:20)
[2017-12-05] MEDS: Lidocaine 5% 700 MG Patch TOP SCH (11:26)
[2017-12-05] MEDS: Naloxegol Oxalate 25 MG Tab PO SCH (12:45)
[2017-12-05] MEDS: predniSONE 10 MG Tab PO SCH (12:45)
[2017-12-05] MEDS: Promethazine Topical Gel 0.5 ML Syringe TOP PRN (16:31)
[2017-12-06] MEDS: Morphine 2 MG/ML Syringe IVPUSH PRN ×2 (02:17→23:09)
[2017-12-06] MEDS: Sodium Chloride 0.9% 10 ML Syringe IV SCH ×3 (06:15→20:16)
[2017-12-06] MEDS: Acetaminophen 325 MG Tab PO PRN ×2 (06:18→21:01)
[2017-12-06] MEDS: Levothyroxine 75 MCG Tab PO SCH ×2 (06:18→06:31)
[2017-12-06] MEDS: Diclofenac Sodium 1% Gel 100 GM Tube TOP PRN ×3 (06:26→21:02)
[2017-12-06] MEDS: Pantoprazole 40 MG Vial IVPUSH SCH (09:49)
[2017-12-06] MEDS: Levofloxacin/Dextrose 5%-Water 100 ML IV SCH (09:51)
[2017-12-06] MEDS: Naloxegol Oxalate 25 MG Tab PO SCH (10:02)
[2017-12-06] MEDS: Promethazine Topical Gel 0.5 ML Syringe TOP PRN (11:20)
[2017-12-06] MEDS: Lidocaine 5% 700 MG Patch TOP SCH ×2 (11:48→13:30)
[2017-12-06] MEDS: predniSONE 10 MG Tab PO SCH (13:28)
[2017-12-07] MEDS: Sodium Chloride 0.9% 10 ML Syringe IV SCH ×5 (01:08→23:03)
[2017-12-07] MEDS: Diclofenac Sodium 1% Gel 100 GM Tube TOP PRN ×2 (01:18→17:04)
[2017-12-07] MEDS: Levothyroxine 75 MCG Tab PO SCH ×2 (05:07→06:31)
[2017-12-07] MEDS: Naloxegol Oxalate 25 MG Tab PO SCH (10:14)
[2017-12-07] MEDS: Pantoprazole 40 MG Vial IVPUSH SCH (11:19)
[2017-12-07] MEDS: Levofloxacin/Dextrose 5%-Water 100 ML IV SCH (11:19)
[2017-12-07] MEDS: Promethazine Topical Gel 0.5 ML Syringe TOP PRN (13:00)
[2017-12-07] MEDS: predniSONE 10 MG Tab PO SCH (13:16)
[2017-12-07] MEDS: Lidocaine 5% 700 MG Patch TOP SCH ×2 (13:28)
[2017-12-07] MEDS: Acetaminophen 325 MG Tab PO PRN (17:19)
[2017-12-07] MEDS: Morphine 2 MG/ML Syringe IVPUSH PRN ×2 (20:48→23:02)
[2017-12-08] MEDS: Diclofenac Sodium 1% Gel 100 GM Tube TOP PRN (02:42)
[2017-12-08] MEDS: Acetaminophen 325 MG Tab PO PRN (02:42)
[2017-12-08] MEDS: Morphine 2 MG/ML Syringe IVPUSH PRN ×5 (05:35→22:16)
[2017-12-08] MEDS: Sodium Chloride 0.9% 10 ML Syringe IV SCH ×3 (05:36→18:06)
[2017-12-08] MEDS: Levothyroxine 75 MCG Tab PO SCH (07:45)
[2017-12-08] MEDS: Naloxegol Oxalate 25 MG Tab PO SCH ×2 (07:47→08:05)
[2017-12-08] MEDS: Pantoprazole 40 MG Vial IVPUSH SCH (08:46)
[2017-12-08] MEDS: Levofloxacin/Dextrose 5%-Water 100 ML IV SCH (08:56)
[2017-12-08] MEDS: Sodium Chloride 0.9% 50 ML IV SCH (10:40)
[2017-12-08] MEDS: Promethazine Topical Gel 0.5 ML Syringe TOP PRN (10:44)
[2017-12-08] MEDS: Lidocaine 5% 700 MG Patch TOP SCH ×2 (11:17)
[2017-12-08] MEDS: predniSONE 10 MG Tab PO SCH (14:02)
[2017-12-08] MEDS: Saliva Substitute Oral Spray 120 ML Bottle MUCMEM PRN (18:08)
[2017-12-09] MEDS: Diclofenac Sodium 1% Gel 100 GM Tube TOP PRN ×2 (01:12→06:30)
[2017-12-09] MEDS: Saliva Substitute Oral Spray 120 ML Bottle MUCMEM PRN ×2 (01:19→06:34)
[2017-12-09] MEDS: Sodium Chloride 0.9% 10 ML Syringe IV SCH ×3 (01:23→11:14)
[2017-12-09] MEDS: Morphine 2 MG/ML Syringe IVPUSH PRN ×3 (01:32→09:49)
[2017-12-09] MEDS: Levothyroxine 75 MCG Tab PO SCH (09:41)
[2017-12-09] MEDS: Promethazine Topical Gel 0.5 ML Syringe TOP PRN (09:43)
[2017-12-09] MEDS ORDERED: Morphine PF 30 MG/30 ML PCA Vial IV SCH (09:45)
--- NOTE | 2017-12-09 09:46 | PCM.PN ---
- General Info Date of Service: 12/09/17 Functional Status: Reports: Tolerating Diet, Urinating, New Symptoms (Pain requirements, new area dehiscence opening on abdomen, considerable dry mouth). Denies: Pain Controlled, Ambulating - Review of Systems General: Reports: Weakness, Fatigue. Denies: Fever, Malaise, Chills, Night Sweats HEENT: Reports: Other (Considerable dry mouth) Pulmonary: Reports: No Symptoms Cardiovascular: Reports: No Symptoms Gastrointestinal: Reports: Abdominal Pain, Constipation. Denies: Diarrhea, Difficulty Swallowing, Flatus, Nausea, Vomiting Genitourinary: Reports: No Symptoms Musculoskeletal: Reports: No Symptoms Skin: Reports: Pallor Neurological: Reports: Difficulty Walking, Weakness. Denies: Confusion Psychiatric: Reports: Mood Lability - Patient Data Vitals - Most Recent: Last Vital Signs Temp 98.6 F 12/09/17 06:52 Pulse 84 12/09/17 06:52 Resp 16 12/09/17 06:52 BP 103/67 12/09/17 06:52 Pulse Ox 96 12/09/17 06:52 Weight - Most Recent: 153 lb 7 oz I&O - Last 24 Hours: Intake & Output 12/08/17 12/09/17 12/09/17 22:59 06:59 14:59 Intake Total 100 10 Output Total 400 120 Balance -300 -110 Med Orders - Current: Current Medications Acetaminophen (Tylenol) 650 mg PO Q6H PRN PRN Reason: Pain (moderate 4-6) Last Admin: 12/08/17 02:42 Dose: 650 mg Acetaminophen (Tylenol) 650 mg RECTAL Q6H PRN PRN Reason: Pain Diclofenac Sodium (Voltaren 1% Gel) 2 gm TOP QID PRN PRN Reason: Pain Last Admin: 12/09/17 06:30 Dose: 1 applic Levofloxacin/Dextrose (Levaquin In D5w 500 Mg/100 Ml) 100 mls @ 100 mls/hr IV DAILY [place] Last Admin: 12/08/17 08:56 Dose: 100 mls/hr Sodium Chloride (Normal Saline) 50 mls @ 100 mls/hr IV DAILY [place] Last Admin: 12/08/17 10:40 Dose: 100 mls/hr Levothyroxine Sodium (Levothyroxine) 150 mcg PO ACBREAKFAST [place] Last Admin: 12/08/17 07:45 Dose: 150 mcg Lidocaine (Lidoderm 5%) 700 mg TOP DAILY@1159 [facility] Last Admin: 12/08/17 11:17 Dose: 700 mg Lidocaine (Lidoderm 5%) 700 mg TOP DAILY@1159 [facility] Last Admin: 12/08/17 11:17 Dose: 700 mg Lorazepam (Ativan) 0.25 mg IVPUSH Q8H PRN PRN Reason: anxiety Miscellaneous Information (Remove Patch) 1 ea TRDERM DAILY@2359 [facility] Last Admin: 12/09/17 01:18 Dose: 1 ea Miscellaneous Information (Remove Patch) 1 ea TRDERM DAILY@2359 [facility] Last Admin: 12/09/17 01:18 Dose: 1 ea Morphine Sulfate (Morphine) 1 - 2 mg IVPUSH Q3H PRN PRN Reason: pain Last Admin: 12/09/17 06:40 Dose: 2 mg Naloxegol (Movantik) 25 mg PO DAILY [facility] Last Admin: 12/08/17 08:05 Dose: Not Given Ondansetron HCl (Zofran) 4 mg IVPUSH Q6H [facility] Last Admin: 12/09/17 06:33 Dose: 4 mg Pantoprazole Sodium (Protonix Iv) 40 mg IVPUSH DAILY [facility] Last Admin: 12/08/17 08:46 Dose: 40 mg Prednisone (Prednisone) 10 mg PO DAILY@1200 [facility] Last Admin: 12/08/17 14:02 Dose: 10 mg Prochlorperazine Maleate (Compazine) 5 mg PO Q6H PRN PRN Reason: Nausea/Vomiting Promethazine HCl (Phenergan) 0 ml TOP Q6H PRN PRN Reason: Nausea Last Admin: 12/08/17 10:44 Dose: 1 ml Ramelteon (Rozerem) 8 mg PO BEDTIME PRN PRN Reason: insomnia Last Admin: 12/06/17 23:17 Dose: 8 mg Saliva Substitute (Ernesto-Stir Oral Hewitt) 0 ml MUCMEM Q1H PRN PRN Reason: dry mouth Last Admin: 12/09/17 06:34 Dose: 1 spray Sodium Chloride (Saline Flush) 20 ml IV Q6H [facility] Last Admin: 12/09/17 06:05 Dose: 20 ml Discontinued Medications Acetaminophen (Tylenol) 650 mg PO Q4H PRN PRN Reason: Pain (mild 1-3) Last Admin: 11/25/17 09:26 Dose: 650 mg Acetaminophen (Tylenol) 650 mg RECTAL Q4H PRN PRN Reason: Fever Last Admin: 11/16/17 20:23 Dose: 650 mg Acetaminophen (Tylenol Arthritis Pain) 650 mg PO Q6HR [facility] Last Admin: 11/28/17 10:02 Dose: 650 mg Ascorbic Acid (Vitamin C) 500 mg PO DAILY [facility] Last Admin: 11/29/17 09:50 Dose: Not Given Clonazepam (Klonopin) 0.5 mg PO BID PRN PRN Reason: Other Last Admin: 11/29/17 13:11 Dose: 0.5 mg Ferrous Sulfate (Slow Release Iron) 160 mg PO DAILY [facility] Last Admin: 11/16/17 15:30 Dose: Not Given Heparin Sodium (Porcine) (Heparin Lock Flush 100 Units/Ml) 500 units FLUSH ASDIRECTED ONE Stop: 11/24/17 15:36 Last Admin: 11/24/17 15:57 Dose: 500 units Levofloxacin/Dextrose 250 mg/ (Premix) 50 mls @ 50 mls/hr IV ONETIME [facility] Last Admin: 11/16/17 12:24 Dose: 50 mls/hr Levofloxacin/Dextrose 500 mg/ (Premix) 100 mls @ 100 mls/hr IV ONETIME [facility] Last Admin: 11/16/17 15:29 Dose: 100 mls/hr Sodium Chloride (Normal Saline) 1,000 mls @ 125 mls/hr IV ASDIRECTED [facility] Last Admin: 11/16/17 21:29 Dose: 125 mls/hr Potassium Chloride/Sodium Chloride (Normal Saline With 20 Meq Kcl) 1,000 mls @ 125 mls/hr IV ASDIRECTED [facility] Last Admin: 11/16/17 23:06 Dose: 125 mls/hr Levofloxacin/Dextrose (Levaquin In D5w 250 Mg/50 Ml) 50 mls @ 50 mls/hr IV DAILY@1330 [facility] Last Admin: 11/19/17 15:13 Dose: 50 mls/hr Levofloxacin/Dextrose (Levaquin In D5w 500 Mg/100 Ml) 100 mls @ 100 mls/hr IV DAILY@1430 [facility] Last Admin: 11/19/17 16:11 Dose: 100 mls/hr Sodium Chloride (Normal Saline) Confirm Administered Dose 150 mls @ as directed .ROUTE .STK-MED ONE Stop: 11/17/17 14:46 Last Admin: 11/17/17 15:15 Dose: 50 mls/hr Potassium Chloride 20 meq/ (Premix) 100 mls @ 50 mls/hr IV ONETIME ONE Stop: 11/18/17 00:24 Last Admin: 11/17/17 22:39 Dose: 50 mls/hr Levofloxacin/Dextrose (Levaquin In D5w 250 Mg/50 Ml) 50 mls @ 70 mls/hr IV DAILY@0915 [facility] Last Admin: 11/20/17 12:19 Dose: 70 mls/hr Levofloxacin/Dextrose (Levaquin In D5w 500 Mg/100 Ml) 100 mls @ 100 mls/hr IV DAILY@1000 [facility] Last Admin: 11/20/17 09:52 Dose: 143 mls/hr Levofloxacin/Dextrose (Levaquin In D5w 250 Mg/50 Ml) 50 mls @ 50 mls/hr IV DAILY@1300 [facility] Last Admin: 11/24/17 13:06 Dose: 50 mls/hr Levofloxacin/Dextrose (Levaquin In D5w 500 Mg/100 Ml) 100 mls @ 100 mls/hr IV DAILY@1400 [facility] Last Admin: 11/24/17 14:19 Dose: 100 mls/hr Sodium Chloride (Normal Saline) 100 mls @ 20 mls/hr IV DAILY@1300 [facility] Last Admin: 11/24/17 13:09 Dose: 20 mls/hr Levofloxacin (Levaquin) 750 mg PO DAILY [facility] Last Admin: 11/15/17 10:27 Dose: 500 mg Levofloxacin (Levaquin) 750 mg PO Q24H [facility] Last Admin: 12/05/17 10:11 Dose: Not Given Levothyroxine Sodium (Synthroid) 100 mcg PO ACBREAKFAST [facility] Lorazepam (Ativan) 0.5 mg PO Q6H PRN PRN Reason: Agitation Stop: 11/17/17 10:22 Last Admin: 11/16/17 16:09 Dose: 0.5 mg Melatonin (Melatonin) 3 mg PO BEDTIME PRN PRN Reason: Insomnia Metoclopramide HCl (Reglan) 5 mg PO Q6H PRN PRN Reason: Nausea/Vomiting Last Admin: 11/28/17 16:04 Dose: 5 mg Mirtazapine (Remeron) 30 mg PO BEDTIME [facility] Last Admin: 11/14/17 21:26 Dose: 30 mg Mirtazapine (Remeron) 15 mg PO BEDTIME [facility] Last Admin: 11/20/17 21:00 Dose: Not Given Morphine Sulfate (Morphine) 2 mg IVPUSH ONETIME ONE Stop: 12/03/17 16:42 Last Admin: 12/03/17 17:17 Dose: 2 mg Morphine Sulfate (Morphine) 2 mg IVPUSH Q3H PRN PRN Reason: Pain Last Admin: 12/04/17 01:30 Dose: 2 mg Promethazine Topical (Gel 1 Ml Syringe) 0 each TOP Q6H PRN PRN Reason: Nausea Last Admin: 11/28/17 09:13 Dose: 1 each Ondansetron HCl (Zofran Odt) 4 mg PO Q8H PRN PRN Reason: Nausea/Vomiting Ondansetron HCl (Zofran Odt) 8 mg PO Q8H PRN PRN Reason: Nausea/Vomiting Ondansetron HCl (Zofran) 8 mg IVPUSH Q6H PRN PRN Reason: Nausea/Vomiting Last Admin: 11/22/17 19:53 Dose: 8 mg Ondansetron HCl (Zofran Odt) 8 mg PO Q6H PRN PRN Reason: Nausea/Vomiting Last Admin: 11/30/17 14:15 Dose: 8 mg Ondansetron HCl (Zofran) 4 mg IVPUSH Q6H PRN PRN Reason: Nausea/Vomiting Last Admin: 12/04/17 08:03 Dose: 4 mg Ondansetron HCl (Zofran) 4 mg IVPUSH Q6H [facility] Last Admin: 12/04/17 12:08 Dose: 4 mg Polysaccharide Iron Complex (Ferrex 150) 150 mg PO DAILY [facility] Last Admin: 11/29/17 09:50 Dose: Not Given Potassium Bicarb/Potassium Chloride (Potassium Chloride, Effervescent) 25 meq PO ONETIME ONE Stop: 11/17/17 18:21 Last Admin: 11/17/17 18:30 Dose: 25 meq Potassium Bicarb/Potassium Chloride (Potassium Chloride, Effervescent) 25 meq PO ONETIME ONE Stop: 11/17/17 21:01 Last Admin: 11/17/17 23:16 Dose: Not Given Potassium Bicarb/Potassium Chloride (Potassium Chloride, Effervescent) 25 meq PO DAILY [facility] Promethazine HCl (Phenergan) 0.5 ml TOP .STK-MED ONE Stop: 11/26/17 12:52 Ramelteon (Rozerem) 8 mg PO BEDTIME [facility] Last Admin: 11/20/17 21:00 Dose: Not Given Ranitidine HCl (Zantac) 150 mg PO BIDAC [facility] Last Admin: 12/05/17 10:11 Dose: Not Given Sodium Chloride (Normal Saline) 20 ml FLUSH TID [facility] Last Admin: 11/25/17 09:25 Dose: Not Given Sodium Chloride (Saline Flush) 20 ml IV ASDIRECTED PRN PRN Reason: port flush - Exam Quality Assessment: No: Supplemental Oxygen General: Alert, Oriented, No Acute Distress Neck: No JVD Lungs: Clear to Auscultation, Normal Respiratory Effort Cardiovascular: Regular Rate, Regular Rhythm GI/Abdominal Exam: Distended, Rigid, Tender, Abnormal Bowel Sounds, Other ( Ostomy bag over previous Pleurx site drain, new area of skin opening mid abdominal left to center with notable loose stool) (Female) Exam: Deferred Back Exam: No: CVA Tenderness (L), CVA Tenderness (R) Extremities: No: Pedal Edema Wound/Incisions: Drainage (Stool leaking out of previous Pleurx drain site, ) Psy/Mental Status: Alert, Normal Affect, Normal Mood - Problem List Review Problem List Initiated/Reviewed/Updated: Yes - My Orders Last 24 Hours: My Active Orders 12/08/17 09:00 Sodium Chloride 0.9% [Normal Saline] 50 ml IV DAILY - Plan Plan:: HPI summary: Mrs. Wlals is a 57yoF with a history notable for stage IV colon adenocarcinoma with recent hospitalization from 10/23/17 to 11/14/17 at [facility] for abdominal pain secondary to bowel obstruction who during the hospitalization developed peritonitis with septic shock and recurrent malignant ascites for which abdominal drain is now in place. She required several courses of antibiotics, TPN and PRBCs at times during her stay. She became significantly deconditioned and was discharged to [facility] for swing bed rehabilitation. 12/09/17 update: Patient with increasing pain requirements, extremely dry mouth, new area of abdomen opening with stool drainage. Also still has ongoing ostomy covering previous Pleurx catheter. Increase in abdominal rigidity. Not passing flatus Hospitalization problems: Pain: Significantly increasing due to aggressively advancing cancer, peritoneal irritability due to perforated bowel along with significant lumbar bone pain. As a result of her pain increase requiring increase in morphine and limited hospital supplies with regular morphine she will require patient-controlled analgesia/ACADEMIC PHYSICIAN morphine pump. Also continue with Tylenol, lidocaine patch, and topical analgesic cream. --Perforated bowel, now with 2 areas external communication from abdominal cavity--largest one draining from Pleurx drain site--causing her significant skin irritability, and pain this is a significant problem which requires intense nursing monitoring, colostomy changes, dressing changes, there is no surgical treatment option for patient. Expectant mgt. continue with prophylaxis Levaquin. Likely could benefit from pulling the drain site--will be determined. Dehydration, profound this morning, likely could feel better from gentle fluids today. # Deconditioning: Profound weakness and fatigue Secondary to metastatic cancer and recent illness. Continue physical therapy. 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 Ruffin, [facility]; last appt , when molecular testing was sent, but she and her state that they were informed that there may not be any futher treatment options as [facility] had also declined consultation stating that there weren't any known treatment options for her. She has upcoming appt on 12/12/[address] Ruffin. # Hx peritonitis secondary to bowel perforation: Etiology E. coli and Strep anginosus. 11/13/17 CT abdomen/pelvis with air in the ascites, which was felt to be secondary to the peritoneal drain and not bowel perforation. S/p 10 day course of cefepime and metronidazole. Admitted on prophylactic levofloxacin, which was changed to IV during period of time when she wasn't tolerating oral intake--this remains ongoing. # Nausea: Seems to have improved since starting prednisone 10 mg by mouth daily. Also continue with scheduled Zofran. Important her meals appear appealing to her. # Anemia: Received 2 units PRBCs on 11/14/17. Hgb 9.1 on 11/18/17. Patient declines taking the iron and vitamin C, which has been ordered since admission. # Protein calorie malnutrition: Due to her CA likely will be ongoing problem however important patient selects meals that are appealing to her. Does have a history of anasarca however no edema at this time. # Depression and insomnia: Related to overall and recent medical difficulties. Mirtazepine previously discontinued due to likely associated acute encephalopathy, which has since resolved. Continue ramelteon. Encouraged family support. Appears patient has progressed expectantly appropriately through a grieving process regarding her terminal illness. 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 Continue levothyroxine at current dose. Hospitalization details: --Patient very dry and dehydrated today likely could feel better if IV fluids today. # PPX: Ambulation for DVT ppx. # Code status: DO NOT RESUSCITATE. # Emergency contact: , [place], # Disposition: Continue with SNF, with increasing in her pain requirements will trial morphine ACADEMIC PHYSICIAN today for appropriate lockout settings. IV fluids today,
[2017-12-09] MEDS: Pantoprazole 40 MG Vial IVPUSH SCH (09:51)
[2017-12-09] MEDS: Sodium Chloride 0.9% 50 ML IV SCH (09:54)
[2017-12-09] MEDS: Levofloxacin/Dextrose 5%-Water 100 ML IV SCH (09:54)
[2017-12-09] MEDS ORDERED: Sodium Chloride 0.9% 1,000 ML IV ONE (10:15)
[2017-12-09] MEDS: Naloxegol Oxalate 25 MG Tab PO SCH (10:33)
[2017-12-09] MEDS: Lidocaine 5% 700 MG Patch TOP SCH ×2 (11:43→11:44)
[2017-12-09] MEDS: predniSONE 10 MG Tab PO SCH (11:57)
[2017-12-09] MEDS: Sodium Chloride 0.9% 500 ML IV SCH (13:34)
[2017-12-09] MEDS: [UNRECOGNIZED DRUG - REMARK] TOP SCH ×4 (13:39→23:02)
[2017-12-10] MEDS: [UNRECOGNIZED DRUG - REMARK] TOP SCH ×6 (02:41→22:02)
[2017-12-10] MEDS: Pantoprazole 40 MG Vial IVPUSH SCH (09:04)
[2017-12-10] MEDS: Naloxegol Oxalate 25 MG Tab PO SCH (09:04)
[2017-12-10] MEDS: Levothyroxine 75 MCG Tab PO SCH (09:04)
[2017-12-10] MEDS: Levofloxacin/Dextrose 5%-Water 100 ML IV SCH (09:05)
[2017-12-10] MEDS: predniSONE 10 MG Tab PO SCH (12:16)
[2017-12-10] MEDS: Lidocaine 5% 700 MG Patch TOP SCH ×2 (12:16)
[2017-12-10] MEDS: Sodium Chloride 0.9% 500 ML IV SCH (14:06)
[2017-12-10] MEDS: Morphine PF 30 MG/30 ML PCA Vial IV SCH (14:07)
[2017-12-10] MEDS: Promethazine Topical Gel 0.5 ML Syringe TOP PRN (21:16)
[2017-12-11] MEDS: [UNRECOGNIZED DRUG - REMARK] TOP SCH ×6 (02:05→22:21)
[2017-12-11] MEDS: Naloxegol Oxalate 25 MG Tab PO SCH (10:17)
[2017-12-11] MEDS: Levofloxacin/Dextrose 5%-Water 100 ML IV SCH (10:17)
[2017-12-11] MEDS: Levothyroxine 75 MCG Tab PO SCH (10:17)
[2017-12-11] MEDS: Pantoprazole 40 MG Vial IVPUSH SCH (10:18)
[2017-12-11] MEDS: Sodium Chloride 0.9% 500 ML IV SCH (10:19)
[2017-12-11] MEDS: predniSONE 10 MG Tab PO SCH (13:42)
[2017-12-11] MEDS: Lidocaine 5% 700 MG Patch TOP SCH ×2 (13:44)
[2017-12-11] MEDS: Promethazine Topical Gel 0.5 ML Syringe TOP PRN (16:13)
[2017-12-11] MEDS: Morphine PF 30 MG/30 ML PCA Vial IV SCH (22:57)
[2017-12-12] MEDS: [UNRECOGNIZED DRUG - REMARK] TOP SCH ×6 (04:04→23:52)
[2017-12-12] MEDS: Naloxegol Oxalate 25 MG Tab PO SCH (09:17)
[2017-12-12] MEDS: Pantoprazole 40 MG Vial IVPUSH SCH (09:17)
[2017-12-12] MEDS: Levothyroxine 75 MCG Tab PO SCH (09:23)
[2017-12-12] MEDS: Levofloxacin/Dextrose 5%-Water 100 ML IV SCH (09:23)
[2017-12-12] MEDS: Promethazine Topical Gel 0.5 ML Syringe TOP PRN ×2 (09:30→23:55)
[2017-12-12] MEDS: Sodium Chloride 0.9% 500 ML IV SCH (09:32)
[2017-12-12] MEDS: Lidocaine 5% 700 MG Patch TOP SCH ×2 (13:00)
[2017-12-12] MEDS: predniSONE 10 MG Tab PO SCH (16:30)
[2017-12-13] MEDS: [UNRECOGNIZED DRUG - REMARK] TOP SCH ×6 (04:33→23:45)
[2017-12-13] MEDS: Promethazine Topical Gel 0.5 ML Syringe TOP PRN (05:46)
[2017-12-13] MEDS: Morphine PF 30 MG/30 ML PCA Vial IV SCH (08:25)
[2017-12-13] MEDS: Levothyroxine 75 MCG Tab PO SCH (09:59)
[2017-12-13] MEDS: Pantoprazole 40 MG Vial IVPUSH SCH (09:59)
[2017-12-13] MEDS: Naloxegol Oxalate 25 MG Tab PO SCH (10:00)
[2017-12-13] MEDS: Levofloxacin/Dextrose 5%-Water 100 ML IV SCH (10:05)
[2017-12-13] MEDS: Sodium Chloride 0.9% 500 ML IV SCH (10:35)
[2017-12-13] MEDS: Scopolamine 1.5 MG Transdermal Patch TRDERM SCH (13:32)
[2017-12-13] MEDS: predniSONE 10 MG Tab PO SCH (13:36)
[2017-12-13] MEDS: Prochlorperazine 5 MG Tab PO SCH ×2 (13:36→17:39)
[2017-12-13] MEDS: Lidocaine 5% 700 MG Patch TOP SCH ×2 (15:50→15:51)
[2017-12-13] MEDS: Promethazine Topical Gel 0.5 ML Syringe TOP SCH (21:20)
[2017-12-14] MEDS: Promethazine Topical Gel 0.5 ML Syringe TOP SCH ×4 (02:17→21:35)
[2017-12-14] MEDS: [UNRECOGNIZED DRUG - REMARK] TOP SCH ×6 (02:17→23:45)
[2017-12-14] MEDS: Levothyroxine 75 MCG Tab PO SCH (10:56)
[2017-12-14] MEDS: Pantoprazole 40 MG Vial IVPUSH SCH (11:00)
[2017-12-14] MEDS: Naloxegol Oxalate 25 MG Tab PO SCH (11:01)
[2017-12-14] MEDS: Lidocaine 5% 700 MG Patch TOP SCH ×2 (11:13→12:12)
[2017-12-14] MEDS: Sodium Chloride 0.9% 10 ML Syringe IV PRN (11:14)
[2017-12-14] MEDS: Levofloxacin/Dextrose 5%-Water 100 ML IV SCH (11:27)
[2017-12-14] MEDS: predniSONE 10 MG Tab PO SCH (12:12)
[2017-12-14] MEDS: Sodium Chloride 0.9% 500 ML IV SCH (13:41)
[2017-12-14] MEDS: Morphine PF 30 MG/30 ML PCA Vial IV SCH (20:33)
[2017-12-15] MEDS: [UNRECOGNIZED DRUG - REMARK] TOP SCH ×6 (03:24→23:30)
[2017-12-15] MEDS: Promethazine Topical Gel 0.5 ML Syringe TOP SCH ×6 (03:25→22:00)
[2017-12-15] MEDS: Levothyroxine 75 MCG Tab PO SCH (08:57)
[2017-12-15] MEDS: Pantoprazole 40 MG Vial IVPUSH SCH (08:58)
[2017-12-15] MEDS: Naloxegol Oxalate 25 MG Tab PO SCH (09:00)
[2017-12-15] MEDS: Sodium Chloride 0.9% 10 ML Syringe IV PRN (09:00)
[2017-12-15] MEDS: predniSONE 10 MG Tab PO SCH (12:14)
[2017-12-15] MEDS: Lidocaine 5% 700 MG Patch TOP SCH ×2 (12:15→12:39)
[2017-12-15] MEDS: Sodium Chloride 0.9% 500 ML IV SCH (14:45)
[2017-12-16] MEDS: [UNRECOGNIZED DRUG - REMARK] TOP SCH ×6 (03:51→22:00)
[2017-12-16] MEDS: Promethazine Topical Gel 0.5 ML Syringe TOP SCH ×4 (03:51→22:00)
[2017-12-16] MEDS: Pantoprazole 40 MG Vial IVPUSH SCH (08:20)
[2017-12-16] MEDS: Levothyroxine 75 MCG Tab PO SCH (08:24)
[2017-12-16] MEDS: Naloxegol Oxalate 25 MG Tab PO SCH (08:24)
[2017-12-16] MEDS: Morphine PF 30 MG/30 ML PCA Vial IV SCH (09:28)
[2017-12-16] MEDS: Sodium Chloride 0.9% 500 ML IV SCH (09:29)
--- NOTE | 2017-12-16 11:02 | PCM.PN ---
- General Info Date of Service: 12/13/17 Functional Status: Reports: Pain Controlled, Tolerating Diet. Denies: Incentive Spirometry - Review of Systems General: Reports: Weakness. Denies: Malaise, Chills, Night Sweats HEENT: Reports: No Symptoms Pulmonary: Denies: Cough, Sputum Cardiovascular: Reports: No Symptoms Gastrointestinal: Reports: Abdominal Pain, Decreased Appetite, Nausea. Denies: Constipation Genitourinary: Reports: No Symptoms Musculoskeletal: Reports: Back Pain Skin: Reports: Other (Ostomy over Pleurx drain site) Neurological: Reports: Difficulty Walking, Weakness Psychiatric: Reports: Mood Lability. Denies: Confusion, Agitation - Patient Data Vitals - Most Recent: Last Vital Signs Temp 98.2 F 12/16/17 06:16 Pulse 96 12/16/17 06:16 Resp 20 12/16/17 06:16 BP 105/60 12/16/17 06:16 Pulse Ox 94 L 12/16/17 09:55 Weight - Most Recent: 153 lb 7 oz I&O - Last 24 Hours: Intake & Output 12/15/17 12/16/17 12/16/17 22:59 06:59 14:59 Intake Total 0 248 Output Total 310 Balance -310 248 Med Orders - Current: Current Medications Acetaminophen (Tylenol) 650 mg PO Q6H PRN PRN Reason: Pain (moderate 4-6) Last Admin: 12/08/17 02:42 Dose: 650 mg Acetaminophen (Tylenol) 650 mg RECTAL Q6H PRN PRN Reason: Pain Diclofenac Sodium (Voltaren 1% Gel) 2 gm TOP QID PRN PRN Reason: Pain Last Admin: 12/09/17 06:30 Dose: 1 applic Sodium Chloride (Normal Saline) 500 mls @ 20 mls/hr IV DAILY@1030 [facility] Last Admin: 12/16/17 09:29 Dose: 20 mls/hr Levothyroxine Sodium (Levothyroxine) 150 mcg PO ACBREAKFAST [facility] Last Admin: 12/16/17 08:24 Dose: Not Given Lidocaine (Lidoderm 5%) 700 mg TOP DAILY@1159 [facility] Last Admin: 12/15/17 12:39 Dose: 700 mg Lidocaine (Lidoderm 5%) 700 mg TOP DAILY@1159 [facility] Last Admin: 12/15/17 12:15 Dose: Not Given Lorazepam (Ativan) 0.25 mg IVPUSH Q8H PRN PRN Reason: anxiety Last Admin: 12/16/17 09:36 Dose: 0.25 mg Miscellaneous Information (Remove Patch) 1 ea TRDERM DAILY@2359 [facility] Last Admin: 12/16/17 00:18 Dose: 1 ea Miscellaneous Information (Remove Patch) 1 ea TRDERM DAILY@2359 [facility] Last Admin: 12/16/17 00:11 Dose: Not Given Morphine Sulfate (Morphine Arcade Attendant 30 Mg In 30 Ml) 30 mg IV CONTINUOUS [facility]; Protocol Last Admin: 12/16/17 09:28 Dose: 30 mg Naloxegol (Movantik) 25 mg PO DAILY [facility] Last Admin: 12/16/17 08:24 Dose: Not Given Non-Form Biotene (Dry Mouth Gel) 1 each TOP Q4HR [facility] Last Admin: 12/16/17 06:00 Dose: Not Given Ondansetron HCl (Zofran) 4 mg IVPUSH Q6H [facility] Last Admin: 12/16/17 08:19 Dose: 4 mg Pantoprazole Sodium (Protonix Iv) 40 mg IVPUSH DAILY [facility] Last Admin: 12/16/17 08:20 Dose: 40 mg Prednisone (Prednisone) 10 mg PO DAILY@1200 [facility] Last Admin: 12/15/17 12:14 Dose: Not Given Promethazine HCl (Phenergan) 0.5 ml TOP Q6H [facility] Last Admin: 12/16/17 03:51 Dose: 0.5 ml Ramelteon (Rozerem) 8 mg PO BEDTIME PRN PRN Reason: insomnia Last Admin: 12/12/17 23:53 Dose: 8 mg Saliva Substitute (Ernesto-Stir Oral [place]) 0 ml MUCMEM Q1H PRN PRN Reason: dry mouth Last Admin: 12/09/17 06:34 Dose: 1 spray Scopolamine (Transderm-Scop) 1.5 mg TRDERM Q72H [facility] Last Admin: 12/13/17 13:32 Dose: 1.5 mg Sodium Chloride (Saline Flush) 20 ml IV ASDIRECTED PRN PRN Reason: tkvo Last Admin: 12/15/17 09:00 Dose: 20 ml Discontinued Medications Acetaminophen (Tylenol) 650 mg PO Q4H PRN PRN Reason: Pain (mild 1-3) Last Admin: 11/25/17 09:26 Dose: 650 mg Acetaminophen (Tylenol) 650 mg RECTAL Q4H PRN PRN Reason: Fever Last Admin: 11/16/17 20:23 Dose: 650 mg Acetaminophen (Tylenol Arthritis Pain) 650 mg PO Q6HR [facility] Last Admin: 11/28/17 10:02 Dose: 650 mg Ascorbic Acid (Vitamin C) 500 mg PO DAILY [facility] Last Admin: 11/29/17 09:50 Dose: Not Given Clonazepam (Klonopin) 0.5 mg PO BID PRN PRN Reason: Other Last Admin: 11/29/17 13:11 Dose: 0.5 mg Ferrous Sulfate (Slow Release Iron) 160 mg PO DAILY [facility] Last Admin: 11/16/17 15:30 Dose: Not Given Heparin Sodium (Porcine) (Heparin Lock Flush 100 Units/Ml) 500 units FLUSH ASDIRECTED ONE Stop: 11/24/17 15:36 Last Admin: 11/24/17 15:57 Dose: 500 units Levofloxacin/Dextrose 250 mg/ (Premix) 50 mls @ 50 mls/hr IV ONETIME [facility] Last Admin: 11/16/17 12:24 Dose: 50 mls/hr Levofloxacin/Dextrose 500 mg/ (Premix) 100 mls @ 100 mls/hr IV ONETIME [facility] Last Admin: 11/16/17 15:29 Dose: 100 mls/hr Sodium Chloride (Normal Saline) 1,000 mls @ 125 mls/hr IV ASDIRECTED [facility] Last Admin: 11/16/17 21:29 Dose: 125 mls/hr Potassium Chloride/Sodium Chloride (Normal Saline With 20 Meq Kcl) 1,000 mls @ 125 mls/hr IV ASDIRECTED [facility] Last Admin: 11/16/17 23:06 Dose: 125 mls/hr Levofloxacin/Dextrose (Levaquin In D5w 250 Mg/50 Ml) 50 mls @ 50 mls/hr IV DAILY@1330 [facility] Last Admin: 11/19/17 15:13 Dose: 50 mls/hr Levofloxacin/Dextrose (Levaquin In D5w 500 Mg/100 Ml) 100 mls @ 100 mls/hr IV DAILY@1430 [facility] Last Admin: 11/19/17 16:11 Dose: 100 mls/hr Sodium Chloride (Normal Saline) Confirm Administered Dose 150 mls @ as directed .ROUTE .STK-MED ONE Stop: 11/17/17 14:46 Last Admin: 11/17/17 15:15 Dose: 50 mls/hr Potassium Chloride 20 meq/ (Premix) 100 mls @ 50 mls/hr IV ONETIME ONE Stop: 11/18/17 00:24 Last Admin: 11/17/17 22:39 Dose: 50 mls/hr Levofloxacin/Dextrose (Levaquin In D5w 250 Mg/50 Ml) 50 mls @ 70 mls/hr IV DAILY@0915 [facility] Last Admin: 11/20/17 12:19 Dose: 70 mls/hr Levofloxacin/Dextrose (Levaquin In D5w 500 Mg/100 Ml) 100 mls @ 100 mls/hr IV DAILY@1000 [facility] Last Admin: 11/20/17 09:52 Dose: 143 mls/hr Levofloxacin/Dextrose (Levaquin In D5w 250 Mg/50 Ml) 50 mls @ 50 mls/hr IV DAILY@1300 [facility] Last Admin: 11/24/17 13:06 Dose: 50 mls/hr Levofloxacin/Dextrose (Levaquin In D5w 500 Mg/100 Ml) 100 mls @ 100 mls/hr IV DAILY@1400 [facility] Last Admin: 11/24/17 14:19 Dose: 100 mls/hr Sodium Chloride (Normal Saline) 100 mls @ 20 mls/hr IV DAILY@1300 [facility] Last Admin: 11/24/17 13:09 Dose: 20 mls/hr Levofloxacin/Dextrose (Levaquin In D5w 500 Mg/100 Ml) 100 mls @ 100 mls/hr IV DAILY [facility] Last Admin: 12/14/17 11:27 Dose: Not Given Sodium Chloride (Normal Saline) 50 mls @ 100 mls/hr IV DAILY [facility] Last Admin: 12/09/17 09:54 Dose: 100 mls/hr Sodium Chloride (Normal Saline) 1,000 mls @ 500 mls/hr IV .BOLUS ONE Stop: 12/09/17 12:14 Last Admin: 12/09/17 11:32 Dose: 500 mls/hr Levofloxacin (Levaquin) 750 mg PO DAILY [facility] Last Admin: 11/15/17 10:27 Dose: 500 mg Levofloxacin (Levaquin) 750 mg PO Q24H [facility] Last Admin: 12/05/17 10:11 Dose: Not Given Levothyroxine Sodium (Synthroid) 100 mcg PO ACBREAKFAST [place] Lorazepam (Ativan) 0.5 mg PO Q6H PRN PRN Reason: Agitation Stop: 11/17/17 10:22 Last Admin: 11/16/17 16:09 Dose: 0.5 mg Melatonin (Melatonin) 3 mg PO BEDTIME PRN PRN Reason: Insomnia Metoclopramide HCl (Reglan) 5 mg PO Q6H PRN PRN Reason: Nausea/Vomiting Last Admin: 11/28/17 16:04 Dose: 5 mg Mirtazapine (Remeron) 30 mg PO BEDTIME [place] Last Admin: 11/14/17 21:26 Dose: 30 mg Mirtazapine (Remeron) 15 mg PO BEDTIME [place] Last Admin: 11/20/17 21:00 Dose: Not Given Morphine Sulfate (Morphine) 2 mg IVPUSH ONETIME ONE Stop: 12/03/17 16:42 Last Admin: 12/03/17 17:17 Dose: 2 mg Morphine Sulfate (Morphine) 2 mg IVPUSH Q3H PRN PRN Reason: Pain Last Admin: 12/04/17 01:30 Dose: 2 mg Morphine Sulfate (Morphine) 1 - 2 mg IVPUSH Q3H PRN PRN Reason: pain Last Admin: 12/09/17 09:49 Dose: 2 mg Morphine Sulfate (Morphine Arcade Attendant 30 Mg In 30 Ml) 30 mg IV CONTINUOUS [place]; Protocol Last Admin: 12/09/17 12:01 Dose: 30 mg Promethazine Topical (Gel 1 Ml Syringe) 0 each TOP Q6H PRN PRN Reason: Nausea Last Admin: 11/28/17 09:13 Dose: 1 each Ondansetron HCl (Zofran Odt) 4 mg PO Q8H PRN PRN Reason: Nausea/Vomiting Ondansetron HCl (Zofran Odt) 8 mg PO Q8H PRN PRN Reason: Nausea/Vomiting Ondansetron HCl (Zofran) 8 mg IVPUSH Q6H PRN PRN Reason: Nausea/Vomiting Last Admin: 11/22/17 19:53 Dose: 8 mg Ondansetron HCl (Zofran Odt) 8 mg PO Q6H PRN PRN Reason: Nausea/Vomiting Last Admin: 11/30/17 14:15 Dose: 8 mg Ondansetron HCl (Zofran) 4 mg IVPUSH Q6H PRN PRN Reason: Nausea/Vomiting Last Admin: 12/04/17 08:03 Dose: 4 mg Ondansetron HCl (Zofran) 4 mg IVPUSH Q6H [facility] Last Admin: 12/04/17 12:08 Dose: 4 mg Polysaccharide Iron Complex (Ferrex 150) 150 mg PO DAILY [facility] Last Admin: 11/29/17 09:50 Dose: Not Given Potassium Bicarb/Potassium Chloride (Potassium Chloride, Effervescent) 25 meq PO ONETIME ONE Stop: 11/17/17 18:21 Last Admin: 11/17/17 18:30 Dose: 25 meq Potassium Bicarb/Potassium Chloride (Potassium Chloride, Effervescent) 25 meq PO ONETIME ONE Stop: 11/17/17 21:01 Last Admin: 11/17/17 23:16 Dose: Not Given Potassium Bicarb/Potassium Chloride (Potassium Chloride, Effervescent) 25 meq PO DAILY [facility] Prochlorperazine Maleate (Compazine) 5 mg PO Q6H PRN PRN Reason: Nausea/Vomiting Prochlorperazine Maleate (Compazine) 10 mg PO Q6H [facility] Last Admin: 12/13/17 17:39 Dose: Not Given Promethazine HCl (Phenergan) 0.5 ml TOP .STK-MED ONE Stop: 11/26/17 12:52 Promethazine HCl (Phenergan) 0 ml TOP Q6H PRN PRN Reason: Nausea Last Admin: 12/13/17 05:46 Dose: 0.5 ml Ramelteon (Rozerem) 8 mg PO BEDTIME [facility] Last Admin: 11/20/17 21:00 Dose: Not Given Ranitidine HCl (Zantac) 150 mg PO BIDAC [facility] Last Admin: 12/05/17 10:11 Dose: Not Given Sodium Chloride (Normal Saline) 20 ml FLUSH TID [facility] Last Admin: 11/25/17 09:25 Dose: Not Given Sodium Chloride (Saline Flush) 20 ml IV ASDIRECTED PRN PRN Reason: port flush Sodium Chloride (Saline Flush) 20 ml IV Q6H [facility] Last Admin: 12/09/17 11:14 Dose: 20 ml - Exam Quality Assessment: Skin Breakdown (Abdominal wall skin breakdown). No: Supplemental Oxygen General: Alert, Mild Distress Neck: Supple Lungs: Clear to Auscultation, Normal Respiratory Effort Cardiovascular: Regular Rate, Regular Rhythm GI/Abdominal Exam: Distended, Tender, Abnormal Bowel Sounds, Mass (Female) Exam: Deferred Back Exam: No: CVA Tenderness (R) Extremities: No Pedal Edema Skin: Other (2 open areas on abd--Pleurx catheter remains however minimal drainage stool drainage around Pleurx drainage with one open areas superior and medial to this.) Neurological: Normal Speech Psy/Mental Status: Labile Mood - Problem List Review Problem List Initiated/Reviewed/Updated: Yes - Plan Plan:: HPI summary: Mrs. Walls is a 57yoF with a history notable for stage IV colon adenocarcinoma with recent hospitalization from 10/23/17 to 11/14/17 at [facility] for abdominal pain secondary to bowel obstruction who during the hospitalization developed peritonitis with septic shock and recurrent malignant ascites for which abdominal drain is now in place. She required several courses of antibiotics, TPN and PRBCs at times during her stay. She became significantly deconditioned and was discharged to [facility] for swing bed rehabilitation. Hx peritonitis secondary to bowel perforation: Etiology E. coli and Strep anginosus. 11/13/17 CT abdomen/pelvis with air in the ascites, which was felt to be secondary to the peritoneal drain and not bowel perforation. S/p 10 day course of cefepime and metronidazole. Admitted on prophylactic levofloxacin, which was changed to IV during period of time when she wasn't tolerating oral intake, however likely not receiving any benefit. 12/13/17 update: Morphine [employer]IAL REGISTRAR seems to be controlling patient's pain. Ongoing nausea requiring multiple medication changes. Dry mouth has improved somewhat due to Biotene. Ongoing abdomen opening with stool drainage. Also still has ongoing ostomy covering previous Pleurx catheter. Increase in abdominal rigidity. Hospitalization problems: Pain: Seems to be more controlled now with morphine [employer] REGISTRAR, ongoing peritoneal peritoneal irritability due to perforated bowel. limited hospital supplies with regular morphine she will require ongoing [employer] morphine pump. Also continue with Tylenol, lidocaine patch, and topical analgesic cream. Perforated bowel, now with 2 areas external communication from abdominal cavity- -largest one draining from Pleurx drain site--causing her significant skin irritability, and pain this is a significant problem which requires intense nursing monitoring, colostomy changes, dressing changes, there is no surgical treatment option for patient. Expectant mgt. we will discontinue prophylaxis Levaquin for likely very little benefit. Previous attempts to discontinue Pleurx catheter unsuccessful. # Deconditioning: Profound weakness and fatigue Secondary to metastatic cancer and recent illness. Continue physical therapy as much as she can tolerate. 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 Ruffin, [facility]; last appt , when molecular testing was sent, but she and her state that they were informed that there may not be any futher treatment options as [facility] had also declined consultation stating that there weren't any known treatment options for her. She has upcoming appt on 12/12/[address] Ruffin. # Nausea: Ongoing with multiple medication changes/adjustments. Important her meals appear appealing to her. # Anemia: Received 2 units PRBCs on 11/14/17. Hgb 9.1 on 11/18/17. No longer accepting blood draws. # Protein calorie malnutrition: Due to her CA likely will be ongoing problem however important patient selects meals that are appealing to her. Does have a history of anasarca however no edema at this time. # Depression and insomnia: Related to overall and recent medical difficulties. Mirtazepine previously discontinued due to likely associated acute encephalopathy, which has since resolved. Continue ramelteon. Encouraged family support. Appears patient has progressed expectantly appropriately through a grieving process regarding her terminal illness. 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 Continue levothyroxine at current dose. Hospitalization details: # PPX: Ambulation for DVT ppx. # Code status: DO NOT RESUSCITATE. # Emergency contact: , Gibson, # Disposition: Continue with SNF, will require ongoing morphine JUDIC[employer] REGISTRAR analgesic. Okay for nursing staff to consider indwelling [place] catheter for [facility]. Adjusted morphine [employer]IAL REGISTRAR lockout.
[2017-12-16] MEDS: Lidocaine 5% 700 MG Patch TOP SCH ×2 (12:08)
[2017-12-16] MEDS: Diclofenac Sodium 1% Gel 100 GM Tube TOP PRN (12:08)
[2017-12-16] MEDS: Scopolamine 1.5 MG Transdermal Patch TRDERM SCH (12:16)
[2017-12-16] MEDS: predniSONE 10 MG Tab PO SCH (13:28)
[2017-12-17] MEDS: [UNRECOGNIZED DRUG - REMARK] TOP SCH ×5 (04:00→18:43)
[2017-12-17] MEDS: Promethazine Topical Gel 0.5 ML Syringe TOP SCH ×4 (05:14→22:07)
[2017-12-17] MEDS: Levothyroxine 75 MCG Tab PO SCH (08:25)
[2017-12-17] MEDS: Pantoprazole 40 MG Vial IVPUSH SCH (08:53)
[2017-12-17] MEDS: Naloxegol Oxalate 25 MG Tab PO SCH (09:19)
[2017-12-17] MEDS ORDERED: LORazepam 2 MG/ML SDV IVPUSH PRN (09:53)
[2017-12-17] MEDS: Sodium Chloride 0.9% 500 ML IV SCH (10:34)
[2017-12-17] MEDS: Lidocaine 5% 700 MG Patch TOP SCH ×2 (13:12→13:13)
[2017-12-17] MEDS: Morphine PF 30 MG/30 ML PCA Vial IV SCH (17:48)
[2017-12-18] MEDS: [UNRECOGNIZED DRUG - REMARK] TOP SCH ×6 (01:27→18:27)
[2017-12-18] MEDS: Promethazine Topical Gel 0.5 ML Syringe TOP SCH ×4 (04:23→20:33)
[2017-12-18] MEDS: Pantoprazole 40 MG Vial IVPUSH SCH (09:43)
[2017-12-18] MEDS: Sodium Chloride 0.9% 500 ML IV SCH (09:44)
[2017-12-18] MEDS: Lidocaine 5% 700 MG Patch TOP SCH ×2 (13:19→13:20)
[2017-12-18] MEDS ORDERED: Morphine 10 MG/ML Syringe ONE (17:59)
[2017-12-19] MEDS: Morphine PF 30 MG/30 ML PCA Vial IV SCH (01:01)
[2017-12-19] MEDS: [UNRECOGNIZED DRUG - REMARK] TOP SCH ×7 (01:10→18:13)
[2017-12-19] MEDS: Promethazine Topical Gel 0.5 ML Syringe TOP SCH ×4 (04:34→23:27)
[2017-12-19] MEDS ORDERED: Menthol 7.6 MG Sugar Free Lozenge PO PRN (09:04)
[2017-12-19] MEDS: Sodium Chloride 0.9% 500 ML IV SCH (09:32)
[2017-12-19] MEDS: Pantoprazole 40 MG Vial IVPUSH SCH (09:32)
[2017-12-19] MEDS: Scopolamine 1.5 MG Transdermal Patch TRDERM SCH (11:37)
[2017-12-19] MEDS: Lidocaine 5% 700 MG Patch TOP SCH ×2 (11:39)
[2017-12-19] MEDS: Diclofenac Sodium 1% Gel 100 GM Tube TOP PRN (11:52)
[2017-12-19] MEDS ORDERED: Morphine 10 MG/ML Syringe ONE (13:50)
[2017-12-20] MEDS: [UNRECOGNIZED DRUG - REMARK] TOP SCH ×7 (02:34→23:54)
[2017-12-20] MEDS: Promethazine Topical Gel 0.5 ML Syringe TOP SCH ×4 (05:38→22:12)
[2017-12-20] MEDS: Diclofenac Sodium 1% Gel 100 GM Tube TOP PRN (05:50)
[2017-12-20] MEDS: Pantoprazole 40 MG Vial IVPUSH SCH (08:06)
[2017-12-20] MEDS: Morphine PF 30 MG/30 ML PCA Vial IV SCH (11:21)
[2017-12-20] MEDS: Sodium Chloride 0.9% 500 ML IV SCH (11:23)
[2017-12-20] MEDS: Lidocaine 5% 700 MG Patch TOP SCH ×2 (13:23)
[2017-12-20] MEDS ORDERED: Ondansetron 4 MG/2 ML SDV ONE (23:50)
[2017-12-21] MEDS: [UNRECOGNIZED DRUG - REMARK] TOP SCH ×6 (05:20→23:53)
[2017-12-21] MEDS: Promethazine Topical Gel 0.5 ML Syringe TOP SCH ×4 (05:21→20:24)
[2017-12-21] MEDS: Ondansetron 4 MG/2 ML SDV IVPUSH SCH ×3 (06:07→19:20)
[2017-12-21] MEDS: Pantoprazole 40 MG Vial IVPUSH SCH (08:28)
[2017-12-21] MEDS: Sodium Chloride 0.9% 500 ML IV SCH (09:42)
[2017-12-21] MEDS: Lidocaine 5% 700 MG Patch TOP SCH ×2 (12:34)
[2017-12-21] MEDS: Morphine PF 30 MG/30 ML PCA Vial IV SCH (20:37)
[2017-12-22] MEDS ORDERED: Ondansetron 4 MG/2 ML SDV IVPUSH SCH
[2017-12-22] MEDS: [UNRECOGNIZED DRUG - REMARK] TOP SCH ×6 (04:12→23:50)
[2017-12-22] MEDS: Promethazine Topical Gel 0.5 ML Syringe TOP SCH ×4 (04:13→22:04)
[2017-12-22] MEDS: Sodium Chloride 0.9% 500 ML IV SCH (10:35)
[2017-12-22] MEDS: Pantoprazole 40 MG Vial IVPUSH SCH (10:37)
[2017-12-22] MEDS: Sodium Chloride 0.9% 10 ML Syringe IV PRN (10:39)
[2017-12-22] MEDS: Scopolamine 1.5 MG Transdermal Patch TRDERM SCH (10:42)
[2017-12-22] MEDS: Lidocaine 5% 700 MG Patch TOP SCH ×2 (11:35)
[2017-12-22] MEDS ORDERED: Lidocaine 5% 700 MG Patch TOP PRN ×2 (12:38→12:40)
[2017-12-22] MEDS: Diclofenac Sodium 1% Gel 100 GM Tube TOP PRN (16:41)
[2017-12-23] MEDS: Promethazine Topical Gel 0.5 ML Syringe TOP SCH ×4 (05:48→21:09)
[2017-12-23] MEDS: [UNRECOGNIZED DRUG - REMARK] TOP SCH ×5 (05:48→18:50)
[2017-12-23] MEDS: Morphine 10 MG/ML Syringe IVPUSH PRN ×4 (05:50→14:04)
[2017-12-23] MEDS: Pantoprazole 40 MG Vial IVPUSH SCH (08:17)
[2017-12-23] MEDS: Sodium Chloride 0.9% 500 ML IV SCH (11:14)
[2017-12-23] MEDS ORDERED: Morphine 10 MG/ML Syringe ONE (15:15)
[2017-12-23] MEDS: Morphine PF 30 MG/30 ML PCA Vial IV SCH (16:23)
[2017-12-24] MEDS: Promethazine Topical Gel 0.5 ML Syringe TOP SCH ×4 (02:29→21:11)
[2017-12-24] MEDS: [UNRECOGNIZED DRUG - REMARK] TOP SCH ×7 (03:49→22:42)
[2017-12-24] MEDS: Sodium Chloride 0.9% 500 ML IV SCH (10:10)
[2017-12-24] MEDS: Pantoprazole 40 MG Vial IVPUSH SCH (10:10)
[2017-12-24] MEDS ORDERED: Morphine 10 MG/ML Syringe ONE (15:55)
[2017-12-24] MEDS: Ondansetron 4 MG/2 ML SDV IVPUSH SCH ×2 (17:34→23:57)
[2017-12-25] MEDS: [UNRECOGNIZED DRUG - REMARK] TOP SCH ×6 (03:13→22:41)
[2017-12-25] MEDS: Promethazine Topical Gel 0.5 ML Syringe TOP SCH ×4 (03:13→21:06)
[2017-12-25] MEDS: Morphine PF 30 MG/30 ML PCA Vial IV SCH (05:24)
[2017-12-25] MEDS: Ondansetron 4 MG/2 ML SDV IVPUSH SCH ×3 (05:38→18:24)
[2017-12-25] MEDS: Pantoprazole 40 MG Vial IVPUSH SCH (08:17)
[2017-12-25] MEDS: Sodium Chloride 0.9% 500 ML IV SCH (10:14)
[2017-12-25] MEDS: Scopolamine 1.5 MG Transdermal Patch TRDERM SCH (10:15)
--- NOTE | 2017-12-25 12:34 | PCM.PN ---
- General Info Date of Service: 12/24/17 Functional Status: Reports: Pain Controlled, Urinating. Denies: Tolerating Diet , Ambulating, New Symptoms - Review of Systems General: Reports: Weakness, Malaise. Denies: Fever, Appetite Pulmonary: Reports: No Symptoms Cardiovascular: Reports: Edema Gastrointestinal: Reports: Abdominal Pain, Decreased Appetite. Denies: Difficulty Swallowing, Vomiting Skin: Reports: Bruising Neurological: Reports: Weakness, Gait Disturbance Psychiatric: Reports: Mood Lability - Patient Data Vitals - Most Recent: Last Vital Signs Temp 97.6 F 12/25/17 06:40 Pulse 83 12/25/17 06:40 Resp 12 12/25/17 06:40 BP 83/56 L 12/25/17 06:40 Pulse Ox 95 12/25/17 07:45 Weight - Most Recent: 130 lb 12.8 oz I&O - Last 24 Hours: Intake & Output 12/24/17 12/25/17 12/25/17 22:59 06:59 14:59 Intake Total 172 135 Output Total 75 15 Balance 97 120 Med Orders - Current: Current Medications Diclofenac Sodium (Voltaren 1% Gel) 2 gm TOP QID PRN PRN Reason: Pain Last Admin: 12/22/17 16:41 Dose: 1 applic Sodium Chloride (Normal Saline) 500 mls @ 20 mls/hr IV DAILY@1030 [place] Last Admin: 12/25/17 10:14 Dose: 20 mls/hr Lidocaine (Lidoderm 5%) 700 mg TOP DAILY@1159 PRN PRN Reason: Pain Lidocaine (Lidoderm 5%) 700 mg TOP DAILY@1159 PRN PRN Reason: Pain Lorazepam (Ativan) 0.5 mg IVPUSH Q2H PRN PRN Reason: anxiety Menthol ([place] Sugar Free) 1 serge PO ASDIRECTED PRN PRN Reason: Sore Throat Miscellaneous Information (Remove Patch) 1 ea TRDERM DAILY@2359 PRN PRN Reason: Pain Miscellaneous Information (Remove Patch) 1 ea TRDERM DAILY@2359 PRN PRN Reason: Pain Morphine Sulfate (Morphine Vice President [employer] Development 30 Mg In 30 Ml) 30 mg IV CONTINUOUS [place]; Protocol Last Admin: 12/25/17 05:24 Dose: 30 mg Morphine Sulfate (Morphine) 2 - 4 mg IVPUSH Q2H PRN PRN Reason: Pain Last Admin: 12/23/17 14:04 Dose: 3 mg Non-Form Biotene (Dry Mouth Gel) 1 each TOP Q4HR [facility] Last Admin: 12/25/17 10:16 Dose: Not Given Ondansetron HCl (Zofran) 4 mg IVPUSH Q6H [facility] Last Admin: 12/25/17 11:53 Dose: 4 mg Pantoprazole Sodium (Protonix Iv) 40 mg IVPUSH DAILY [facility] Last Admin: 12/25/17 08:17 Dose: 40 mg Promethazine HCl (Phenergan) 0.5 ml TOP Q6H [facility] Last Admin: 12/25/17 08:17 Dose: Not Given Ramelteon (Rozerem) 8 mg PO BEDTIME PRN PRN Reason: insomnia Last Admin: 12/12/17 23:53 Dose: 8 mg Saliva Substitute (Ernesto-Stir Oral [place]) 0 ml MUCMEM Q1H PRN PRN Reason: dry mouth Last Admin: 12/09/17 06:34 Dose: 1 spray Scopolamine (Transderm-Scop) 1.5 mg TRDERM Q72H [facility] Last Admin: 12/25/17 10:15 Dose: 1.5 mg Sodium Chloride (Saline Flush) 20 ml IV ASDIRECTED PRN PRN Reason: tkvo Last Admin: 12/22/17 10:39 Dose: 20 ml Discontinued Medications Acetaminophen (Tylenol) 650 mg PO Q4H PRN PRN Reason: Pain (mild 1-3) Last Admin: 11/25/17 09:26 Dose: 650 mg Acetaminophen (Tylenol) 650 mg RECTAL Q4H PRN PRN Reason: Fever Last Admin: 11/16/17 20:23 Dose: 650 mg Acetaminophen (Tylenol Arthritis Pain) 650 mg PO Q6HR [facility] Last Admin: 11/28/17 10:02 Dose: 650 mg Acetaminophen (Tylenol) 650 mg PO Q6H PRN PRN Reason: Pain (moderate 4-6) Last Admin: 12/08/17 02:42 Dose: 650 mg Acetaminophen (Tylenol) 650 mg RECTAL Q6H PRN PRN Reason: Pain Ascorbic Acid (Vitamin C) 500 mg PO DAILY [facility] Last Admin: 11/29/17 09:50 Dose: Not Given Clonazepam (Klonopin) 0.5 mg PO BID PRN PRN Reason: Other Last Admin: 11/29/17 13:11 Dose: 0.5 mg Ferrous Sulfate (Slow Release Iron) 160 mg PO DAILY [facility] Last Admin: 11/16/17 15:30 Dose: Not Given Heparin Sodium (Porcine) (Heparin Lock Flush 100 Units/Ml) 500 units FLUSH ASDIRECTED ONE Stop: 11/24/17 15:36 Last Admin: 11/24/17 15:57 Dose: 500 units Levofloxacin/Dextrose 250 mg/ (Premix) 50 mls @ 50 mls/hr IV ONETIME [facility] Last Admin: 11/16/17 12:24 Dose: 50 mls/hr Levofloxacin/Dextrose 500 mg/ (Premix) 100 mls @ 100 mls/hr IV ONETIME [facility] Last Admin: 11/16/17 15:29 Dose: 100 mls/hr Sodium Chloride (Normal Saline) 1,000 mls @ 125 mls/hr IV ASDIRECTED [facility] Last Admin: 11/16/17 21:29 Dose: 125 mls/hr Potassium Chloride/Sodium Chloride (Normal Saline With 20 Meq Kcl) 1,000 mls @ 125 mls/hr IV ASDIRECTED [facility] Last Admin: 11/16/17 23:06 Dose: 125 mls/hr Levofloxacin/Dextrose (Levaquin In D5w 250 Mg/50 Ml) 50 mls @ 50 mls/hr IV DAILY@1330 [facility] Last Admin: 11/19/17 15:13 Dose: 50 mls/hr Levofloxacin/Dextrose (Levaquin In D5w 500 Mg/100 Ml) 100 mls @ 100 mls/hr IV DAILY@1430 [facility] Last Admin: 11/19/17 16:11 Dose: 100 mls/hr Sodium Chloride (Normal Saline) Confirm Administered Dose 150 mls @ as directed .ROUTE .STK-MED ONE Stop: 11/17/17 14:46 Last Admin: 11/17/17 15:15 Dose: 50 mls/hr Potassium Chloride 20 meq/ (Premix) 100 mls @ 50 mls/hr IV ONETIME ONE Stop: 11/18/17 00:24 Last Admin: 11/17/17 22:39 Dose: 50 mls/hr Levofloxacin/Dextrose (Levaquin In D5w 250 Mg/50 Ml) 50 mls @ 70 mls/hr IV DAILY@0915 [facility] Last Admin: 11/20/17 12:19 Dose: 70 mls/hr Levofloxacin/Dextrose (Levaquin In D5w 500 Mg/100 Ml) 100 mls @ 100 mls/hr IV DAILY@1000 [facility] Last Admin: 11/20/17 09:52 Dose: 143 mls/hr Levofloxacin/Dextrose (Levaquin In D5w 250 Mg/50 Ml) 50 mls @ 50 mls/hr IV DAILY@1300 [facility] Last Admin: 11/24/17 13:06 Dose: 50 mls/hr Levofloxacin/Dextrose (Levaquin In D5w 500 Mg/100 Ml) 100 mls @ 100 mls/hr IV DAILY@1400 [facility] Last Admin: 11/24/17 14:19 Dose: 100 mls/hr Sodium Chloride (Normal Saline) 100 mls @ 20 mls/hr IV DAILY@1300 [facility] Last Admin: 11/24/17 13:09 Dose: 20 mls/hr Levofloxacin/Dextrose (Levaquin In D5w 500 Mg/100 Ml) 100 mls @ 100 mls/hr IV DAILY [facility] Last Admin: 12/14/17 11:27 Dose: Not Given Sodium Chloride (Normal Saline) 50 mls @ 100 mls/hr IV DAILY [facility] Last Admin: 12/09/17 09:54 Dose: 100 mls/hr Sodium Chloride (Normal Saline) 1,000 mls @ 500 mls/hr IV .BOLUS ONE Stop: 12/09/17 12:14 Last Admin: 12/09/17 11:32 Dose: 500 mls/hr Levofloxacin (Levaquin) 750 mg PO DAILY [facility] Last Admin: 11/15/17 10:27 Dose: 500 mg Levofloxacin (Levaquin) 750 mg PO Q24H [facility] Last Admin: 12/05/17 10:11 Dose: Not Given Levothyroxine Sodium (Synthroid) 100 mcg PO ACBREAKFAST [facility] Levothyroxine Sodium (Levothyroxine) 150 mcg PO ACBREAKFAST [facility] Last Admin: 12/17/17 08:25 Dose: Not Given Lidocaine (Lidoderm 5%) 700 mg TOP DAILY@1159 [facility] Last Admin: 12/22/17 11:35 Dose: Not Given Lidocaine (Lidoderm 5%) 700 mg TOP DAILY@1159 [facility] Last Admin: 12/22/17 11:35 Dose: Not Given Lorazepam (Ativan) 0.5 mg PO Q6H PRN PRN Reason: Agitation Stop: 11/17/17 10:22 Last Admin: 11/16/17 16:09 Dose: 0.5 mg Lorazepam (Ativan) 0.25 mg IVPUSH Q8H PRN PRN Reason: anxiety Last Admin: 12/16/17 09:36 Dose: 0.25 mg Lorazepam (Ativan) 0.5 mg IVPUSH Q8H PRN PRN Reason: anxiety Melatonin (Melatonin) 3 mg PO BEDTIME PRN PRN Reason: Insomnia Metoclopramide HCl (Reglan) 5 mg PO Q6H PRN PRN Reason: Nausea/Vomiting Last Admin: 11/28/17 16:04 Dose: 5 mg Mirtazapine (Remeron) 30 mg PO BEDTIME [place] Last Admin: 11/14/17 21:26 Dose: 30 mg Mirtazapine (Remeron) 15 mg PO BEDTIME [place] Last Admin: 11/20/17 21:00 Dose: Not Given Miscellaneous Information (Remove Patch) 1 ea TRDERM DAILY@2359 [place] Last Admin: 12/22/17 00:13 Dose: Not Given Miscellaneous Information (Remove Patch) 1 ea TRDERM DAILY@2359 [facility] Last Admin: 12/22/17 00:14 Dose: Not Given Morphine Sulfate (Morphine) 2 mg IVPUSH ONETIME ONE Stop: 12/03/17 16:42 Last Admin: 12/03/17 17:17 Dose: 2 mg Morphine Sulfate (Morphine) 2 mg IVPUSH Q3H PRN PRN Reason: Pain Last Admin: 12/04/17 01:30 Dose: 2 mg Morphine Sulfate (Morphine) 1 - 2 mg IVPUSH Q3H PRN PRN Reason: pain Last Admin: 12/09/17 09:49 Dose: 2 mg Morphine Sulfate (Morphine [employer] Development 30 Mg In 30 Ml) 30 mg IV CONTINUOUS [place]; Protocol Last Admin: 12/09/17 12:01 Dose: 30 mg Morphine Sulfate (Morphine) Confirm Administered Dose 30 mg .ROUTE .STK-MED ONE Stop: 12/18/17 18:00 Last Admin: 12/18/17 21:08 Dose: Not Given Morphine Sulfate (Morphine) Confirm Administered Dose 60 mg .ROUTE .STK-MED ONE Stop: 12/19/17 13:51 Last Admin: 12/19/17 14:37 Dose: Not Given Morphine Sulfate (Morphine) Confirm Administered Dose 30 mg .ROUTE [employer] ONE Stop: 12/23/17 15:16 Last Admin: 12/23/17 17:01 Dose: Not Given Morphine Sulfate (Morphine) Confirm Administered Dose 30 mg .ROUTE [employer] ONE Stop: 12/24/17 15:56 Last Admin: 12/24/17 16:48 Dose: Not Given Naloxegol (Movantik) 25 mg PO DAILY [facility] Last Admin: 12/17/17 09:19 Dose: Not Given Promethazine Topical (Gel 1 Ml Syringe) 0 each TOP Q6H PRN PRN Reason: Nausea Last Admin: 11/28/17 09:13 Dose: 1 each Ondansetron HCl (Zofran Odt) 4 mg PO Q8H PRN PRN Reason: Nausea/Vomiting Ondansetron HCl (Zofran Odt) 8 mg PO Q8H PRN PRN Reason: Nausea/Vomiting Ondansetron HCl (Zofran) 8 mg IVPUSH Q6H PRN PRN Reason: Nausea/Vomiting Last Admin: 11/22/17 19:53 Dose: 8 mg Ondansetron HCl (Zofran Odt) 8 mg PO Q6H PRN PRN Reason: Nausea/Vomiting Last Admin: 11/30/17 14:15 Dose: 8 mg Ondansetron HCl (Zofran) 4 mg IVPUSH Q6H PRN PRN Reason: Nausea/Vomiting Last Admin: 12/04/17 08:03 Dose: 4 mg Ondansetron HCl (Zofran) 4 mg IVPUSH Q6H [facility] Last Admin: 12/04/17 12:08 Dose: 4 mg Ondansetron HCl (Zofran) 4 mg IVPUSH Q6H [facility] Last Admin: 12/21/17 01:46 Dose: Not Given Ondansetron HCl (Zofran) Confirm Administered Dose 4 mg .ROUTE [employer] ONE Stop: 12/20/17 23:51 Last Admin: 12/20/17 23:55 Dose: 4 mg Ondansetron HCl (Zofran) 4 mg IVPUSH Q6H [facility] Last Admin: 12/21/17 19:20 Dose: 4 mg Ondansetron HCl (Zofran) 4 mg IVPUSH Q6H [facility] Last Admin: 12/22/17 00:40 Dose: Not Given Ondansetron HCl (Zofran) 4 mg IVPUSH Q6H [facility] Ondansetron HCl (Zofran) 4 mg IVPUSH Q6H [facility] Last Admin: 12/24/17 12:28 Dose: 4 mg Polysaccharide Iron Complex (Ferrex 150) 150 mg PO DAILY [facility] Last Admin: 11/29/17 09:50 Dose: Not Given Potassium Bicarb/Potassium Chloride (Potassium Chloride, Effervescent) 25 meq PO ONETIME ONE Stop: 11/17/17 18:21 Last Admin: 11/17/17 18:30 Dose: 25 meq Potassium Bicarb/Potassium Chloride (Potassium Chloride, Effervescent) 25 meq PO ONETIME ONE Stop: 11/17/17 21:01 Last Admin: 11/17/17 23:16 Dose: Not Given Potassium Bicarb/Potassium Chloride (Potassium Chloride, Effervescent) 25 meq PO DAILY [facility] Prednisone (Prednisone) 10 mg PO DAILY@1200 [facility] Last Admin: 12/16/17 13:28 Dose: Not Given Prochlorperazine Maleate (Compazine) 5 mg PO Q6H PRN PRN Reason: Nausea/Vomiting Prochlorperazine Maleate (Compazine) 10 mg PO Q6H [facility] Last Admin: 12/13/17 17:39 Dose: Not Given Promethazine HCl (Phenergan) 0.5 ml TOP .STK-MED ONE Stop: 11/26/17 12:52 Promethazine HCl (Phenergan) 0 ml TOP Q6H PRN PRN Reason: Nausea Last Admin: 12/13/17 05:46 Dose: 0.5 ml Ramelteon (Rozerem) 8 mg PO BEDTIME [facility] Last Admin: 11/20/17 21:00 Dose: Not Given Ranitidine HCl (Zantac) 150 mg PO BIDAC [facility] Last Admin: 12/05/17 10:11 Dose: Not Given Sodium Chloride (Normal Saline) 20 ml FLUSH TID [facility] Last Admin: 11/25/17 09:25 Dose: Not Given Sodium Chloride (Saline Flush) 20 ml IV ASDIRECTED PRN PRN Reason: port flush Sodium Chloride (Saline Flush) 20 ml IV Q6H [facility] Last Admin: 12/09/17 11:14 Dose: 20 ml - Exam Quality Assessment: No: Supplemental Oxygen General: Sedated Neck: No JVD Lungs: Other (Decreased RR and breath sounds. ) Cardiovascular: Regular Rate GI/Abdominal Exam: Distended Skin: Other (ongoing open wounds to abd) Wound/Incisions: Drainage - Problem List Review Problem List Initiated/Reviewed/Updated: Yes - Plan Plan:: HPI summary: Mrs. Walls is a 57yoF with a history notable for stage IV colon adenocarcinoma with recent hospitalization from 10/23/17 to 11/14/17 at [facility] for abdominal pain secondary to bowel obstruction who during the hospitalization developed peritonitis with septic shock and recurrent malignant ascites for which abdominal drain is now in place. She required several courses of antibiotics, TPN and PRBCs at times during her stay. She became significantly deconditioned and was discharged to [facility] for swing bed rehabilitation. Hx peritonitis secondary to bowel perforation: Etiology E. coli and Strep anginosus. 11/13/17 CT abdomen/pelvis with air in the ascites, which was felt to be secondary to the peritoneal drain and not bowel perforation. S/p 10 day course of cefepime and metronidazole. 12/24 update: Morphine EMERGENCY MEDICAL TECHNICIAN [employer]IC seems to be controlling patient's pain. Ongoing abdomen opening with stool drainage. Also still has ongoing ostomy covering previous Pleurx catheter. Increase in abdominal rigidity with edema to LL Hospitalization problems: Pain: Seems to be more controlled now with morphine EMERGENCY MEDICAL TECHNICIAN BASIC, ongoing peritoneal peritoneal irritability due to perforated bowel. limited hospital supplies with regular morphine she will require ongoing EMERGENCY MEDICAL TECHNICIAN BASIC morphine pump. Also continue with Tylenol, lidocaine patch, and topical analgesic cream. Perforated bowel, now with 2 areas external communication from abdominal cavity- -largest one draining from Pleurx drain site--causing her significant skin irritability, and pain this is a significant problem which requires intense nursing monitoring, colostomy changes, dressing changes, there is no surgical treatment option for patient. Expectant mgt. no longer on prophylaxis Levaquin. Previous attempts to discontinue Pleurx catheter unsuccessful. # Deconditioning: Profound weakness and fatigue 2/2 to metastatic cancer and recent illness. Continue physical therapy as much as she can tolerate. 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 Ruffin, [facility]; last appt , when molecular testing was sent, but she and her state that they were informed that there may not be any futher treatment options as [facility] had also declined consultation stating that there weren't any known treatment options for her. # Nausea: Ongoing with multiple medication changes/adjustments. Important her meals appear appealing to her. # Anemia: Received 2 units PRBCs on 11/14/17. Hgb 9.1 on 11/18/17. No longer accepting blood draws. # Protein calorie malnutrition: Due to her CA likely will be ongoing problem however important patient selects meals that are appealing to her. Does have a history of anasarcawith no edema at this time. # Depression, Related to overall and recent medical difficulties. Mirtazepine previously discontinued due to likely associated acute encephalopathy, which has since resolved. Continue ramelteon. Appears patient has progressed expectantly appropriately through a grieving process regarding her terminal illness. 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 Continue levothyroxine at current dose. Hospitalization details: # Code status: DO NOT RESUSCITATE. # Emergency contact: , Gibson, # Disposition: Continue with SNF, will require ongoing morphine EMERGENCY MEDICAL TECHNICIAN BASIC analgesic. Will make comfort cares.
[2017-12-25] MEDS: LORazepam 2 MG/ML SDV IVPUSH PRN (15:20)
[2017-12-26] MEDS: Ondansetron 4 MG/2 ML SDV IVPUSH SCH ×4 (00:03→17:34)
[2017-12-26] MEDS: [UNRECOGNIZED DRUG - REMARK] TOP SCH ×6 (03:15→23:54)
[2017-12-26] MEDS: Promethazine Topical Gel 0.5 ML Syringe TOP SCH ×4 (03:15→21:45)
[2017-12-26] MEDS: LORazepam 2 MG/ML SDV IVPUSH PRN (06:34)
[2017-12-26] MEDS: Pantoprazole 40 MG Vial IVPUSH SCH (09:10)
[2017-12-26] MEDS ORDERED: Morphine 10 MG/ML Syringe ONE (10:16)
[2017-12-26] MEDS: Sodium Chloride 0.9% 500 ML IV SCH (11:18)
[2017-12-26] MEDS: Morphine PF 30 MG/30 ML PCA Vial IV SCH (13:08)
[2017-12-27] MEDS: Ondansetron 4 MG/2 ML SDV IVPUSH SCH ×4 (00:54→18:42)
[2017-12-27] MEDS: [UNRECOGNIZED DRUG - REMARK] TOP SCH ×7 (03:26→22:25)
[2017-12-27] MEDS: Promethazine Topical Gel 0.5 ML Syringe TOP SCH ×4 (03:26→21:49)
[2017-12-27] MEDS: Pantoprazole 40 MG Vial IVPUSH SCH (09:14)
[2017-12-27] MEDS: Sodium Chloride 0.9% 10 ML Syringe IV PRN (09:15)
[2017-12-27] MEDS: Sodium Chloride 0.9% 500 ML IV SCH (12:00)
[2017-12-28] MEDS: Ondansetron 4 MG/2 ML SDV IVPUSH SCH ×4 (00:46→18:46)
[2017-12-28] MEDS: Promethazine Topical Gel 0.5 ML Syringe TOP SCH ×4 (03:34→20:22)
[2017-12-28] MEDS: [UNRECOGNIZED DRUG - REMARK] TOP SCH ×6 (03:34→23:23)
[2017-12-28] MEDS: Morphine PF 30 MG/30 ML PCA Vial IV SCH (04:34)
[2017-12-28 06:07] VITALS: BP 73/44
[2017-12-28] MEDS: Sodium Chloride 0.9% 500 ML IV SCH (09:44)
[2017-12-28] MEDS: Pantoprazole 40 MG Vial IVPUSH SCH (09:44)
[2017-12-28] MEDS: Scopolamine 1.5 MG Transdermal Patch TRDERM SCH (11:17)
[2017-12-28] MEDS: LORazepam 2 MG/ML SDV IVPUSH PRN (14:09)
[2017-12-29] MEDS: Ondansetron 4 MG/2 ML SDV IVPUSH SCH ×3 (00:46→11:31)
[2017-12-29] MEDS: [UNRECOGNIZED DRUG - REMARK] TOP SCH ×4 (03:59→14:46)
[2017-12-29] MEDS: Promethazine Topical Gel 0.5 ML Syringe TOP SCH ×3 (03:59→14:47)
[2017-12-29] MEDS: Morphine PF 30 MG/30 ML PCA Vial IV SCH (08:03)
[2017-12-29] MEDS: Pantoprazole 40 MG Vial IVPUSH SCH (08:53)
[2017-12-29] MEDS: Sodium Chloride 0.9% 500 ML IV SCH ×2 (08:55→10:21)
--- NOTE | 2017-12-30 16:56 | PCM.DCSUM1 ---
Discharge Summary - Hospital Course Free Text/Narrative:: Date of admission: 11/14/17 Date of discharge: 12/29/17 Admission diagnoses: 1. Deconditioning 2. 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 Hx peritonitis secondary to bowel perforation 4. Pain 5. Anemia 6. Protein calorie malnutrition 7. Depression 8. Insomnia 9. 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 Ulcerative colitis Discharge diagnoses/cause of : 1. 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 Ulcerative colitis Consultations: 1. 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 Dietary 4. Hospice Procedures: None Hospital course: Mrs. Walls is a 57yoF with a history notable for stage IV colon adenocarcinoma with hospitalization from 10/23/17 to 11/14/17 at [facility] for abdominal pain secondary to bowel obstruction who during the hospitalization developed peritonitis with septic shock and recurrent malignant ascites for which abdominal drain is now in place. She required several courses of antibiotics, TPN and PRBCs at times during her stay. She became significantly deconditioned and was discharged to [facility] for swing bed rehabilitation. Was mildly progressing with physical therapy, but extensive discussion about current status and future wishes regarding cares occurred on 11/29/17. Hospice referral was placed. Ultimately, decision was made to stay in swing bed status for ongoing expectant management. During her stay, she had progressive worsening of status, including several sites of transcutaneous leakage of stool from her abdomen. Due to diffuse pain, morphine MARBLE AND GRANITE POLISHER was initiated and titrated to ensure adequate control. Other medications were utilized for symptom control of nausea and dry mouth. I was notified on the afternoon of 12/29/17 that she was noted on routine rounding to be without respiratory effort or pulse and subsequent pronouncement of . Family contacted and was at bedside. - Discharge Data Discharge Date: 12/29/17 Discharge Disposition: 20 Preliminary Cause of *Q: Other_Special Instruction (Metastatic colon cancer) Event(s) Leading to Patient's *Q: Metastatic colon cancer secondary to ulcerative colitis Condition: - Patient Summary/Data Consults: Consultations 11/14/17 19:00 PT Evaluation and Treatment [CONS] Routine 11/19/17 23:14 Consult to Dietary [Consult to Supervisor Publications Production] [CONS] Routine 11/29/17 13:07 Consult to Hospice [CONS] Routine - Discharge Plan *PRESCRIPTION DRUG MONITORING PROGRAM REVIEWED*: Not Applicable *COPY OF PRESCRIPTION DRUG MONITORING REPORT IN PATIENT AIDAN: Not Applicable Home Medications: Home Meds Dexamethasone 4 mg PO ASDIRECTED PRN 06/25/17 [History] Iron,Carbonyl/Ascorbic Acid [Vitron-C Tablet] 1 tab PO BID 06/25/17 [History] Levothyroxine Sodium [Synthroid] 150 mcg PO DAILY 06/25/17 [History] Lidocaine/Prilocaine [EMLA Crm] 1 applic TOP ASDIRECTED PRN 06/25/17 [History] Prochlorperazine Maleate 10 mg PO QID PRN 06/25/17 [History] Ranitidine HCl [Zantac] 150 mg PO BID PRN 06/25/17 [History] - Discharge Summary/Plan Comment DC Time >30 min.: No Discharge Summary/Plan Comment: Patient was not examined on day of discharge/expiration. - Patient Data Vitals - Most Recent: Last Vital Signs Temp 36.7 C 12/28/17 06:07 Pulse 68 12/28/17 06:07 Resp 12 12/28/17 06:07 BP 73/44 L 12/28/17 06:07 Pulse Ox 93 L 12/28/17 06:07 Weight - Most Recent: 59.33 kg Med Orders - Current: Current Medications Discontinued Medications Acetaminophen (Tylenol) 650 mg PO Q4H PRN PRN Reason: Pain (mild 1-3) Last Admin: 11/25/17 09:26 Dose: 650 mg Acetaminophen (Tylenol) 650 mg RECTAL Q4H PRN PRN Reason: Fever Last Admin: 11/16/17 20:23 Dose: 650 mg Acetaminophen (Tylenol Arthritis Pain) 650 mg PO Q6HR [place] Last Admin: 11/28/17 10:02 Dose: 650 mg Acetaminophen (Tylenol) 650 mg PO Q6H PRN PRN Reason: Pain (moderate 4-6) Last Admin: 12/08/17 02:42 Dose: 650 mg Acetaminophen (Tylenol) 650 mg RECTAL Q6H PRN PRN Reason: Pain Ascorbic Acid (Vitamin C) 500 mg PO DAILY [place] Last Admin: 11/29/17 09:50 Dose: Not Given Clonazepam (Klonopin) 0.5 mg PO BID PRN PRN Reason: Other Last Admin: 11/29/17 13:11 Dose: 0.5 mg Diclofenac Sodium (Voltaren 1% Gel) 2 gm TOP QID PRN PRN Reason: Pain Last Admin: 12/22/17 16:41 Dose: 1 applic Ferrous Sulfate (Slow Release Iron) 160 mg PO DAILY [facility] Last Admin: 11/16/17 15:30 Dose: Not Given Heparin Sodium (Porcine) (Heparin Lock Flush 100 Units/Ml) 500 units FLUSH ASDIRECTED ONE Stop: 11/24/17 15:36 Last Admin: 11/24/17 15:57 Dose: 500 units Levofloxacin/Dextrose 250 mg/ (Premix) 50 mls @ 50 mls/hr IV ONETIME [facility] Last Admin: 11/16/17 12:24 Dose: 50 mls/hr Levofloxacin/Dextrose 500 mg/ (Premix) 100 mls @ 100 mls/hr IV ONETIME [facility] Last Admin: 11/16/17 15:29 Dose: 100 mls/hr Sodium Chloride (Normal Saline) 1,000 mls @ 125 mls/hr IV ASDIRECTED [facility] Last Admin: 11/16/17 21:29 Dose: 125 mls/hr Potassium Chloride/Sodium Chloride (Normal Saline With 20 Meq Kcl) 1,000 mls @ 125 mls/hr IV ASDIRECTED [facility] Last Admin: 11/16/17 23:06 Dose: 125 mls/hr Levofloxacin/Dextrose (Levaquin In D5w 250 Mg/50 Ml) 50 mls @ 50 mls/hr IV DAILY@1330 [facility] Last Admin: 11/19/17 15:13 Dose: 50 mls/hr Levofloxacin/Dextrose (Levaquin In D5w 500 Mg/100 Ml) 100 mls @ 100 mls/hr IV DAILY@1430 [facility] Last Admin: 11/19/17 16:11 Dose: 100 mls/hr Sodium Chloride (Normal Saline) Confirm Administered Dose 150 mls @ as directed .ROUTE .STK-MED ONE Stop: 11/17/17 14:46 Last Admin: 11/17/17 15:15 Dose: 50 mls/hr Potassium Chloride 20 meq/ (Premix) 100 mls @ 50 mls/hr IV ONETIME ONE Stop: 11/18/17 00:24 Last Admin: 11/17/17 22:39 Dose: 50 mls/hr Levofloxacin/Dextrose (Levaquin In D5w 250 Mg/50 Ml) 50 mls @ 70 mls/hr IV DAILY@0915 [facility] Last Admin: 11/20/17 12:19 Dose: 70 mls/hr Levofloxacin/Dextrose (Levaquin In D5w 500 Mg/100 Ml) 100 mls @ 100 mls/hr IV DAILY@1000 [facility] Last Admin: 11/20/17 09:52 Dose: 143 mls/hr Levofloxacin/Dextrose (Levaquin In D5w 250 Mg/50 Ml) 50 mls @ 50 mls/hr IV DAILY@1300 [facility] Last Admin: 11/24/17 13:06 Dose: 50 mls/hr Levofloxacin/Dextrose (Levaquin In D5w 500 Mg/100 Ml) 100 mls @ 100 mls/hr IV DAILY@1400 [facility] Last Admin: 11/24/17 14:19 Dose: 100 mls/hr Sodium Chloride (Normal Saline) 100 mls @ 20 mls/hr IV DAILY@1300 [facility] Last Admin: 11/24/17 13:09 Dose: 20 mls/hr Levofloxacin/Dextrose (Levaquin In D5w 500 Mg/100 Ml) 100 mls @ 100 mls/hr IV DAILY [facility] Last Admin: 12/14/17 11:27 Dose: Not Given Sodium Chloride (Normal Saline) 50 mls @ 100 mls/hr IV DAILY [facility] Last Admin: 12/09/17 09:54 Dose: 100 mls/hr Sodium Chloride (Normal Saline) 1,000 mls @ 500 mls/hr IV .BOLUS ONE Stop: 12/09/17 12:14 Last Admin: 12/09/17 11:32 Dose: 500 mls/hr Sodium Chloride (Normal Saline) 500 mls @ 20 mls/hr IV DAILY@1030 [facility] Last Admin: 12/29/17 10:21 Dose: Not Given Levofloxacin (Levaquin) 750 mg PO DAILY [facility] Last Admin: 11/15/17 10:27 Dose: 500 mg Levofloxacin (Levaquin) 750 mg PO Q24H [facility] Last Admin: 12/05/17 10:11 Dose: Not Given Levothyroxine Sodium (Synthroid) 100 mcg PO ACBREAKFAST [facility] Levothyroxine Sodium (Levothyroxine) 150 mcg PO ACBREAKFAST [facility] Last Admin: 12/17/17 08:25 Dose: Not Given Lidocaine (Lidoderm 5%) 700 mg TOP DAILY@1159 [place] Last Admin: 12/22/17 11:35 Dose: Not Given Lidocaine (Lidoderm 5%) 700 mg TOP DAILY@1159 [place] Last Admin: 12/22/17 11:35 Dose: Not Given Lidocaine (Lidoderm 5%) 700 mg TOP DAILY@1159 PRN PRN Reason: Pain Lidocaine (Lidoderm 5%) 700 mg TOP DAILY@1159 PRN PRN Reason: Pain Lorazepam (Ativan) 0.5 mg PO Q6H PRN PRN Reason: Agitation Stop: 11/17/17 10:22 Last Admin: 11/16/17 16:09 Dose: 0.5 mg Lorazepam (Ativan) 0.25 mg IVPUSH Q8H PRN PRN Reason: anxiety Last Admin: 12/16/17 09:36 Dose: 0.25 mg Lorazepam (Ativan) 0.5 mg IVPUSH Q8H PRN PRN Reason: anxiety Lorazepam (Ativan) 0.5 mg IVPUSH Q2H PRN PRN Reason: anxiety Last Admin: 12/28/17 14:09 Dose: 0.5 mg Melatonin (Melatonin) 3 mg PO BEDTIME PRN PRN Reason: Insomnia Menthol (Wylie Sugar Free) 1 serge PO ASDIRECTED PRN PRN Reason: Sore Throat Metoclopramide HCl (Reglan) 5 mg PO Q6H PRN PRN Reason: Nausea/Vomiting Last Admin: 11/28/17 16:04 Dose: 5 mg Mirtazapine (Remeron) 30 mg PO BEDTIME [facility] Last Admin: 11/14/17 21:26 Dose: 30 mg Mirtazapine (Remeron) 15 mg PO BEDTIME [facility] Last Admin: 11/20/17 21:00 Dose: Not Given Miscellaneous Information (Remove Patch) 1 ea TRDERM DAILY@2359 [facility] Last Admin: 12/22/17 00:13 Dose: Not Given Miscellaneous Information (Remove Patch) 1 ea TRDERM DAILY@2359 [facility] Last Admin: 12/22/17 00:14 Dose: Not Given Miscellaneous Information (Remove Patch) 1 ea TRDERM DAILY@2359 PRN PRN Reason: Pain Miscellaneous Information (Remove Patch) 1 ea TRDERM DAILY@2359 PRN PRN Reason: Pain Morphine Sulfate (Morphine) 2 mg IVPUSH ONETIME ONE Stop: 12/03/17 16:42 Last Admin: 12/03/17 17:17 Dose: 2 mg Morphine Sulfate (Morphine) 2 mg IVPUSH Q3H PRN PRN Reason: Pain Last Admin: 12/04/17 01:30 Dose: 2 mg Morphine Sulfate (Morphine) 1 - 2 mg IVPUSH Q3H PRN PRN Reason: pain Last Admin: 12/09/17 09:49 Dose: 2 mg Morphine Sulfate (Morphine Suit Maker 30 Mg In 30 Ml) 30 mg IV CONTINUOUS [place]; Protocol Last Admin: 12/09/17 12:01 Dose: 30 mg Morphine Sulfate (Morphine Suit Maker 30 Mg In 30 Ml) 30 mg IV CONTINUOUS [place]; Protocol Last Admin: 12/29/17 08:03 Dose: 30 mg Morphine Sulfate (Morphine) 2 - 4 mg IVPUSH Q2H PRN PRN Reason: Pain Last Admin: 12/23/17 14:04 Dose: 3 mg Morphine Sulfate (Morphine) Confirm Administered Dose 30 mg .ROUTE .STK-MED ONE Stop: 12/18/17 18:00 Last Admin: 12/18/17 21:08 Dose: Not Given Morphine Sulfate (Morphine) Confirm Administered Dose 60 mg .ROUTE .STK-MED ONE Stop: 12/19/17 13:51 Last Admin: 12/19/17 14:37 Dose: Not Given Morphine Sulfate (Morphine) Confirm Administered Dose 30 mg .ROUTE .STK-MED ONE Stop: 12/23/17 15:16 Last Admin: 12/23/17 17:01 Dose: Not Given Morphine Sulfate (Morphine) Confirm Administered Dose 30 mg .ROUTE .STK-MED ONE Stop: 12/24/17 15:56 Last Admin: 12/24/17 16:48 Dose: Not Given Morphine Sulfate (Morphine) Confirm Administered Dose 90 mg .ROUTE .STK-MED ONE Stop: 12/26/17 10:17 Last Admin: 12/26/17 11:18 Dose: Not Given Naloxegol (Movantik) 25 mg PO DAILY [place] Last Admin: 12/17/17 09:19 Dose: Not Given Promethazine Topical (Gel 1 Ml Syringe) 0 each TOP Q6H PRN PRN Reason: Nausea Last Admin: 11/28/17 09:13 Dose: 1 each Non-Form Biotene (Dry Mouth Gel) 1 each TOP Q4HR [facility] Last Admin: 12/29/17 14:46 Dose: Not Given Ondansetron HCl (Zofran Odt) 4 mg PO Q8H PRN PRN Reason: Nausea/Vomiting Ondansetron HCl (Zofran Odt) 8 mg PO Q8H PRN PRN Reason: Nausea/Vomiting Ondansetron HCl (Zofran) 8 mg IVPUSH Q6H PRN PRN Reason: Nausea/Vomiting Last Admin: 11/22/17 19:53 Dose: 8 mg Ondansetron HCl (Zofran Odt) 8 mg PO Q6H PRN PRN Reason: Nausea/Vomiting Last Admin: 11/30/17 14:15 Dose: 8 mg Ondansetron HCl (Zofran) 4 mg IVPUSH Q6H PRN PRN Reason: Nausea/Vomiting Last Admin: 12/04/17 08:03 Dose: 4 mg Ondansetron HCl (Zofran) 4 mg IVPUSH Q6H [facility] Last Admin: 12/04/17 12:08 Dose: 4 mg Ondansetron HCl (Zofran) 4 mg IVPUSH Q6H [facility] Last Admin: 12/21/17 01:46 Dose: Not Given Ondansetron HCl (Zofran) Confirm Administered Dose 4 mg .ROUTE .STK-MED ONE Stop: 12/20/17 23:51 Last Admin: 12/20/17 23:55 Dose: 4 mg Ondansetron HCl (Zofran) 4 mg IVPUSH Q6H [facility] Last Admin: 12/21/17 19:20 Dose: 4 mg Ondansetron HCl (Zofran) 4 mg IVPUSH Q6H [facility] Last Admin: 12/22/17 00:40 Dose: Not Given Ondansetron HCl (Zofran) 4 mg IVPUSH Q6H [facility] Ondansetron HCl (Zofran) 4 mg IVPUSH Q6H [facility] Last Admin: 12/24/17 12:28 Dose: 4 mg Ondansetron HCl (Zofran) 4 mg IVPUSH Q6H [facility] Last Admin: 12/29/17 11:31 Dose: 4 mg Pantoprazole Sodium (Protonix Iv) 40 mg IVPUSH DAILY [facility] Last Admin: 12/29/17 08:53 Dose: 40 mg Polysaccharide Iron Complex (Ferrex 150) 150 mg PO DAILY [facility] Last Admin: 11/29/17 09:50 Dose: Not Given Potassium Bicarb/Potassium Chloride (Potassium Chloride, Effervescent) 25 meq PO ONETIME ONE Stop: 11/17/17 18:21 Last Admin: 11/17/17 18:30 Dose: 25 meq Potassium Bicarb/Potassium Chloride (Potassium Chloride, Effervescent) 25 meq PO ONETIME ONE Stop: 11/17/17 21:01 Last Admin: 11/17/17 23:16 Dose: Not Given Potassium Bicarb/Potassium Chloride (Potassium Chloride, Effervescent) 25 meq PO DAILY [facility] Prednisone (Prednisone) 10 mg PO DAILY@1200 [facility] Last Admin: 12/16/17 13:28 Dose: Not Given Prochlorperazine Maleate (Compazine) 5 mg PO Q6H PRN PRN Reason: Nausea/Vomiting Prochlorperazine Maleate (Compazine) 10 mg PO Q6H [facility] Last Admin: 12/13/17 17:39 Dose: Not Given Promethazine HCl (Phenergan) 0.5 ml TOP .STK-MED ONE Stop: 11/26/17 12:52 Promethazine HCl (Phenergan) 0 ml TOP Q6H PRN PRN Reason: Nausea Last Admin: 12/13/17 05:46 Dose: 0.5 ml Promethazine HCl (Phenergan) 0.5 ml TOP Q6H [facility] Last Admin: 12/29/17 14:47 Dose: Not Given Ramelteon (Rozerem) 8 mg PO BEDTIME [facility] Last Admin: 11/20/17 21:00 Dose: Not Given Ramelteon (Rozerem) 8 mg PO BEDTIME PRN PRN Reason: insomnia Last Admin: 12/12/17 23:53 Dose: 8 mg Ranitidine HCl (Zantac) 150 mg PO BIDAC [facility] Last Admin: 12/05/17 10:11 Dose: Not Given Saliva Substitute (Ernesto-Stir Oral [place]) 0 ml MUCMEM Q1H PRN PRN Reason: dry mouth Last Admin: 12/09/17 06:34 Dose: 1 spray Scopolamine (Transderm-Scop) 1.5 mg TRDERM Q72H [facility] Last Admin: 12/28/17 11:17 Dose: 1.5 mg Sodium Chloride (Normal Saline) 20 ml FLUSH TID [facility] Last Admin: 11/25/17 09:25 Dose: Not Given Sodium Chloride (Saline Flush) 20 ml IV ASDIRECTED PRN PRN Reason: port flush Sodium Chloride (Saline Flush) 20 ml IV Q6H [facility] Last Admin: 12/09/17 11:14 Dose: 20 ml Sodium Chloride (Saline Flush) 20 ml IV ASDIRECTED PRN PRN Reason: tkvo Last Admin: 12/27/17 09:15 Dose: 20 ml
== END 2017-12-29 13:48 | disposition expired | DRG 240 ==
LOC: KA.MS 16:48
PROVIDERS: ADMIT Family Medicine; ATTEND Family Medicine
DX: C18.9 Malignant neoplasm of colon, unspecified (principal); K63.1 Perforation of intestine (nontraumatic); R53.81 Other malaise; R53.83 Other fatigue; D50.9 Iron deficiency anemia, unspecified; Z51.5 Encounter for palliative care; Z66 Do not resuscitate; C78.6 Secondary malignant neoplasm of retroperitoneum and peritoneum; R10.9 Unspecified abdominal pain; R18.0 Malignant ascites; K65.8 Other peritonitis; E86.0 Dehydration; R53.1 Weakness; E89.0 Postprocedural hypothyroidism; E05.90 Thyrotoxicosis, unspecified without thyrotoxic crisis or storm; B96.20 Unspecified Escherichia coli [E. coli] as the cause of diseases classified elsewhere; B95.4 Other streptococcus as the cause of diseases classified elsewhere; M54.9 Dorsalgia, unspecified; R41.82 Altered mental status, unspecified; E87.6 Hypokalemia; E46 Unspecified protein-calorie malnutrition; F32.9 Major depressive disorder, single episode, unspecified; G47.00 Insomnia, unspecified; R11.0 Nausea; Z79.899 Other long term (current) drug therapy; Z68.25 Body mass index [BMI] 25.0-25.9, adult; Z93.3 Colostomy status; T81.30XA Disruption of wound, unspecified, initial encounter; Z85.850 Personal history of malignant neoplasm of thyroid; H54.7 Unspecified visual loss; R60.9 Edema, unspecified; R68.2 Dry mouth, unspecified; Z80.3 Family history of malignant neoplasm of breast; Z80.41 Family history of malignant neoplasm of ovary; Z80.42 Family history of malignant neoplasm of prostate; Z80.8 Family history of malignant neoplasm of other organs or systems
CPT/HCPCS: 36415; 80048; 80053; 83605; 85025; 85610; 87040; 87070; 87205; 89051; 97032-GP; 97110-GP; 97112-GP; 97140-GP; 97162-GP; 97530-GP; 97537-GP; A9270-GY; C9113; G0283-GP; J1642; J1956; J2060; J2270; J2274; J2405; J3480; J7030; J7040; J7050